=== PATIENT | male | born 1955 | race Caucasian/White ===

== ENCOUNTER 2020-08-03 15:11 | Emergency (ER) | payer OTHER, SELFPAY ==
[2020-08-03] VITALS (40 sets, daily range): BP systolic 130–189; BP diastolic 59–86; PULSE 75–97; RESP 14–28; TEMP 37.7; O2SAT 96–100
--- NOTE | ~2020-08-03 | XR_ITS ---
EXAMINATION: XR foot RT min 3V EXAM DATE: 08/03/2020 16:19 INDICATION: Right foot pain, pressure standing. Great toe is purple. Diabetic. TECHNIQUE: Right foot dorsoplantar, lateral and oblique projections obtained and reviewed. There is no prior study for comparison. FINDINGS: There is ulceration identified overlying the right 1st distal phalanx. There are scattered foci of subcutaneous gas identified within the deeper fascial planes between the 1st and 2nd digits a s proximal as the metatarsal heads. Appearance is suspicious for fasciitis. Scattered foci of gas overlying the proximal aspect of the right 1st distal phalanx, causing some of the lucency to this region, but there is also suspicion of early osteomyelitis. IMPRESSION: 1. Ulceration, and scattered foci of gas, appearance suspicious for fasciitis. 2. Probable right 1st distal phalangeal base osteomyelitis. Reviewed, dictated and finalized at location A.
[2020-08-03 16:17] LABS: Basophils Absolute Auto 0.1 K/mm3 (0.0-0.1); Basophils Percent Auto 0.3 % (0.2-1.2); Eosinophils Percent Auto 0.1 % (0-4.4); Hematocrit 35.4 % (42.0-52.0); Hemoglobin 11.5 g/dL (14.0-18.0); Immature Granulocyte Absolute 0.23 K/mm3 (0.00-0.031); Immature Granulocyte Percent A 1.2 % (0-0.5); Lymphocytes Absolute Auto 1.04 K/mm3 (0.9-3.2); Lymphocytes Percent Auto 5.6 % (18.3-44.2); Mean Corpuscular HGB Conc 32.5 g/dl (32-36); Mean Corpuscular Hemoglobin 27.3 pg (26-34); Mean Corpuscular Volume 83.9 fl (80-100); Mean Platelet Volume 10.5 fl (7.4-10.4); Monocytes Absolute Auto 1.4 K/mm3 (0.1-0.6); Monocytes Percent Auto 7.6 % (2.6-8.5); Neutrophils Absolute Auto 15.9 K/mm3 (1.3-6.7); Neutrophils Percent Auto 85.2 % (45.5-73.1); Platelet Count Result 252 k/mm3 (150-375); Red Blood Count 4.22 M/mm3 (4.6-6.20); Red Cell Distribution Width 12.7 % (11.5-14.5); White Blood Count 18.7 K/mm3 (4.5-10.0)
[2020-08-03 16:26] LABS: Anion Gap 15 mmol/L (8-16); Blood Urea Nitrogen 18 mg/dL (9-20); Calcium 9.2 mg/dL (8.4-10.2); Carbon Dioxide 19 mmol/L (22-30); Chloride 95 mmol/L (98-107); Estimated CRCL calculation 71 ml/min; Estimated Glomerular Filt Rate > 60; Glucose 390 mg/dL (75-110); Potassium 4.7 mmol/L (3.4-5.0); Sodium 129 mmol/L (137-145)
[2020-08-03 16:27] LABS: INR 1.1; Prothrombin Time 15.1 Seconds (11.1-14.7)
[2020-08-03 16:28] LABS: Partial Thromboplastin Time 38.2 SECONDS (22.3-36.8)
[2020-08-03 16:46] LABS: Erythrocyte Sedimentation Rate 61 mm/hr (0-20)
[2020-08-03 17:02] LABS: CRP 38.6 mg/dL (<1.0)
[2020-08-03 17:22] LABS: Hemoglobin A1C > 14.0 % (<5.7)
--- NOTE | 2020-08-03 17:49 | ED.LOWEXIN ---
HPI - Extremity Injury (Lower) General Chief Complaint: Extremity Injury, Lower Stated Complaint: right foot infection Time Seen by Provider: 08/03/20 16:39 Source: patient Limitations: no limitations History of Present Illness HPI Narrative: Patient 65 years old white male presents with pain, swelling, redness and discoloration of the right foot started on the last few days. History of diabetes, does not take his medication over 1 year because of insurance issues. Patient denies any fever, chills, nausea, vomiting, chest pain, back pain or abdominal pain. Patient does not smoke or drink or uses drugs. Patient is DNR. Related Data Home Medications Medication Instructions Recorded Confirmed No Home Medications 08/03/20 08/03/20 Allergies Allergy/AdvReac Type Severity Reaction Status Date / Time No Known Allergies Allergy Verified 08/03/20 15:48 Review of Systems Review of Systems: Narrative: CONSTITUTIONAL: Denies fever, chills, or sweats. EYES: Denies visual changes, redness, or discharge. ENT: Denies rhinorrhea, congestion, sore throat, or otalgia. CARDIOVASCULAR: Denies chest pain, palpitations, or edema. RESPIRATORY: Denies cough or dyspnea. GASTROINTESTINAL: Denies abdominal pain, nausea, vomiting, or diarrhea. GENITOURINARY: Denies dysuria or hematuria. SKIN: Denies rash or itching. MUSCULOSKELETAL: Denies back pain, joint pain, or myalgia. NEUROLOGIC: Denies headache, numbness, or weakness. PSYCHIATRIC: Denies anxiety or depression. Exam Narrative: Exam Narrative: General appearance: Well-developed, well-nourished Skin: Normal color Head: Normocephalic, nontraumatic Eyes: Clear conjunctiva ENT: Oropharynx normal, ears normal, nose normal Neck: Supple, nontender Chest and respiratory: Airway patent, no respiratory distress, no accessory muscle use Heart: Regular rate/rhythm Abdomen: Soft, nontender, no organomegaly, quiet bowel sounds Vascular: Normal peripheral pulses, normal capillary refill. Musculoskeletal: Normal range of motion, nontender back, right foot showed diffuse dorsal erythema, right big toe showed sloughed skin, black discoloration, yellow discoloration, no discharge, diffusely tender Neurologic: Alert and oriented ?3, ENTERPRISE ANALYST is normal as tested, no gross motor deficit Course Course Emergency Course: Stable Consultations Consultation #1: louie Transfer patient to [facility] Date: 08/03/20 Time: 18:29 Consultation #2: DR CARBAJAL The accepting physician at [facility]. Date: 08/03/20 Time: 18:55 Vital Signs Vital signs: Vital Signs Temperature 37.7 C H 08/03/20 15:29 Pulse Rate 89 08/03/20 15:29 Respiratory Rate 20 08/03/20 15:29 Blood Pressure 189/86 H 08/03/20 15:29 Pulse Oximetry 99 08/03/20 15:29 Temperature 37.7 C H 08/03/20 15:29 Pulse Rate 88 08/03/20 19:47 Respiratory Rate 16 08/03/20 19:47 Blood Pressure 141/70 H 08/03/20 19:47 Pulse Oximetry 98 08/03/20 19:47 MDM - Extremity Injury (Lower) MDM Narrative Medical decision making narrative: Patient presents with diabetic foot Labs, x-ray right foot, ordered. Further plan to follow. Please look at the differential diagnosis below Differential Diagnosis Differential diagnosis: Likely other (Diabetic foot, gangrenous toe, diabetic hyperglycemia, electrolyte imbalance) Lab Data Result diagrams: 08/03/20 15:42 08/03/20 15:42 Labs: Lab Results 08/03/20 08/03/20 08/03/20 Range/Units 15:42 15:42 15:42 WBC 18.7 H (4.5-10.0) K/mm3 RBC 4.22 L (4.6-6.20) M/mm3 Hgb 11.5 L (14.0-18.0) g/dL Hct 35.4 L (42.0-52.0) % MCV 83.9 (80-100) fl MCH 27.3
[2020-08-03] MEDS: ERTAPENEM 1 GM/NS 50 ML 1 GM/50 ML BAG IVPB (18:15)
[2020-08-03] MEDS: SODIUM CHLORIDE 0.9% IV 1,000 ML 999 ML IV CONT ×2 (18:28→19:48)
--- NOTE | 2020-08-03 19:51 | PC.NURSE ---
right pedal pulse found via doppler.
[2020-08-03 19:52] LABS: Glucose Point of Care 441 (65-105)
--- NOTE | 2020-08-03 21:23 | PC.NURSE ---
Addendum entered by Tia Hills 08/03/20 21:45: CANCELLED [facility] @[id number]...changed to S, new ETA would be [id number] Called [facility] - DECLINED CALLED [facility] - ETA [id number] Original Note: Called [facility] to transport to [place] on [address] Rm [address]...ETA [id number]
== END 2020-08-03 22:45 | disposition short-term general hospital (02) ==
PROVIDERS: Physician Assistant; Emergency Provider Emergency Medicine
DX: E11.621 Type 2 diabetes mellitus with foot ulcer (principal); M72.9 Fibroblastic disorder, unspecified; M86.9 Osteomyelitis, unspecified; Z91.14 Patient's other noncompliance with medication regimen
CPT/HCPCS: 36415; 73630; 80048; 82948; 83036; 85025; 85610; 85652; 85730; 86140; 96361; 96365; 96375; 99285; J1335; J3370; J7030

== ENCOUNTER 2020-09-22 22:11 | IRF | payer OTHER, SELFPAY ==
[2020-09-22 21:49] VITALS: BP 143/80; PULSE 79; RESP 16; TEMP 36.7; O2SAT 98; BMI 24.5
[2020-09-22 22:30] LABS: Glucose Point of Care 138 mg/dl (65-105)
[2020-09-22] MEDS: HYDROcodone/acetaminophen (*CRX) 5-325 MG TABLET 1 TAB PO (23:16)
--- NOTE | 2020-09-23 01:14 | ADMGEN ---
This patient, Efrain Fiore, was admitted to [facility] Room 221-02. Patient/family oriented to hospital policies and general routines including ID bracelet, bed and alarms, visiting hours, pain management, procedures, bathroom and other care routines, personal items, smoking policy, room service/diet, and visiting hours. Information on how to activate the Rapid Response Team has been discussed. Patient/Family are encouraged to report perceived risks to care and to ask questions if they do not understand what they are told or what they should do. TDialRNC
[2020-09-23 06:00] VITALS: BP 120/86; PULSE 74; RESP 16; TEMP 36.4; O2SAT 99
[2020-09-23] MEDS: HYDROcodone/acetaminophen (*CRX) 5-325 MG TABLET 1 TAB PO ×4 (06:19→21:20)
[2020-09-23 06:39] LABS: Glucose Point of Care 154 mg/dl (65-105)
[2020-09-23] MEDS: INSULIN ASPART (*BKC) 100 UNITS/ML SUB-Q ×2 (07:15→12:03)
[2020-09-23] MEDS: amLODIPine BESYLATE 5 MG TABLET PO (08:36)
[2020-09-23] MEDS: PANTOPRAZOLE 40 MG TABLET PO (08:37)
[2020-09-23] MEDS: GABAPENTIN 300 MG CAPSULE PO ×3 (08:37→16:38)
[2020-09-23] MEDS: PENTOXIFYLLINE 400 MG TABCR PO ×3 (08:37→16:38)
--- NOTE | 2020-09-23 09:37 | WPDREHABHP ---
H&P: HPI History of Present Illness Date/Time: 09/23/20 09:37 Chief Complaint: Right transmetatarsal amputation. Narrative: HISTORY OF PRESENT ILLNESS: The patient's primary rehab impairment category is 0 9 orthopedic other The etiologic diagnosis is right foot osteomyelitis status post right transmetatarsal amputation I saw this patient [id number] on 09/23/2020 The patient is a 65-year-old male with past medical history of diabetes mellitus and right great toe amputation presented to [facility] on 09/11/2020 with purulent discharge from right great toe amputation site. Patient had recently been hospitalized. Patient was discovered on 08/04/2020 to have a blister on the right toe that turned to gas gangrene. He underwent a right great toe amputation and was discharged home from [facility]. Follow up wound care was not initiated. He presented to a wound care clinic on his own and had been doing intermittent wound dressings for him. His last dressing change was on 08/09 when the wound VAC was removed. The patient returned on 09/11 with purulent discharge coming from the amputation site. X-ray of the right foot showed possible osteomyelitis. MRI revealed osteomyelitis. Patient was placed on IV antibiotics. He received a total of 8 days of IV Levaquin and 11 days of vancomycin being discontinued on 09/21/2020. On 09/17/2020 Dr. Jacobo Chao performed a right transmetatarsal amputation. He is nonweightbearing to the right lower extremity. He receives daily dressing changes with Adaptic, gauze, Kerlix and Otto wrap. Postoperatively the patient experienced postop incisional pain and phantom pain, hyponatremia, hyperglycemia, acute blood loss anemia and reactive hypertension. Patient was started on Norvasc for hypertension. Patient's pain is treated with oral analgesics. Hyponatremia was mild and is being repleted. Patient is on sliding scale insulin for hyperglycemia. COVID the patient has not traveled outside the [place] within the Lat past 21 days and has not been exposed to anyone who has traveled to an area with COVID or exposed to any personal contact with COVID. Patient has been afebrile and has no lower respiratory illness. COVID negative on 09/22/2020. Therapy was initiated at the acute care facility and the patient transferred to us from [facility] on 09/22/2020 FALLS OR SURGERIES: He sustained 1 fall 6 months ago when he tripped over his wound VAC. He had no injuries from the incident. Patient has had major surgery consisting of right toe amputation and a transmetatarsal amputation all performed at [facility] PRIOR LEVEL OF FUNCTION: Eating was [INDEPENDENT] Oral Care was [INDEPENDENT] Toileting Hygiene was [INDEPENDENT] Shower/Bathing was [INDEPENDENT] Upper Body Dressing was [INDEPENDENT] Lower Body Dressing was [INDEPENDENT] Donning/Burney Footwear was [INDEPENDENT] Rolling Left and Right was [INDEPENDENT] Sit to Lying was [INDEPENDENT] Lying to Sitting was [INDEPENDENT] Sit to Stand was [INDEPENDENT] Bed to Chair Transfers was [INDEPENDENT] Toilet Transfers was [INDEPENDENT] Walking was [INDEPENDENT] [>500 feet] with [NO DEVICE] Wheelchair Mobility was [NOT APPLICABLE PRIOR TO ADMISSION] Stairs were [INDEPENDENT] CURRENT LEVEL OF FUNCTION: Eating was independent Oral Care was supervision or touching assistance Toileting Hygiene was partial to mod assistance Shower/Bathing was partial to mod assistance Upper Body Dressing was partial to mod assist Lower Body Dressing was partial to mod assist Donning/Burney Footwear was partial to mod assist Rolling Left and Right was supervision or touching assist Sit to Lying was supervision or test Lying to Sitting was supervision or touching assist Sit to Stand was partial to mod assist Bed to Chair Transfers were partial to mod assist Toilet Transfers were partial to mod assist Walki
[2020-09-23 10:46] LABS: Basophils Percent Auto 0.6 % (0.2-1.2); Eosinophils Absolute Auto 0.3 K/mm3 (0-0.3); Eosinophils Percent Auto 4.9 % (0-4.4); Hematocrit 37.7 % (42.0-52.0); Hemoglobin 11.9 g/dL (14.0-18.0); Immature Granulocyte Absolute 0.01 K/mm3 (0.00-0.031); Immature Granulocyte Percent A 0.2 % (0-0.5); Lymphocytes Absolute Auto 1.62 K/mm3 (0.9-3.2); Lymphocytes Percent Auto 31.5 % (18.3-44.2); Mean Corpuscular HGB Conc 31.6 g/dl (32-36); Mean Corpuscular Hemoglobin 26.6 pg (26-34); Mean Corpuscular Volume 84.3 fl (80-100); Mean Platelet Volume 10.2 fl (7.4-10.4); Monocytes Absolute Auto 0.6 K/mm3 (0.1-0.6); Monocytes Percent Auto 10.9 % (2.6-8.5); Neutrophils Absolute Auto 2.7 K/mm3 (1.3-6.7); Neutrophils Percent Auto 51.9 % (45.5-73.1); Platelet Count Result 236 k/mm3 (150-375); Red Blood Count 4.47 M/mm3 (4.6-6.20); Red Cell Distribution Width 14.8 % (11.5-14.5); White Blood Count 5.1 K/mm3 (4.5-10.0)
[2020-09-23 10:55] LABS: Alanine Aminotransferase 19 U/L (4-50); Albumin Level 4.6 g/dL (3.5-5.1); Alkaline Phosphatase 108 U/L (38-126); Anion Gap 11 mmol/L (8-16); Aspartate Amino Transferase 25 U/L (17-59); Bilirubin,Total 0.9 mg/dL (0.2-1.3); Blood Urea Nitrogen 23 mg/dL (9-20); Calcium 10.1 mg/dL (8.4-10.2); Carbon Dioxide 26 mmol/L (22-30); Chloride 104 mmol/L (98-107); Estimated CRCL calculation 80 ml/min; Estimated Glomerular Filt Rate > 60; Glucose 226 mg/dL (75-110); Potassium 4.3 mmol/L (3.4-5.0); Sodium 141 mmol/L (137-145)
[2020-09-23 11:38] LABS: Glucose Point of Care 190 mg/dl (65-105)
[2020-09-23 12:08] VITALS: BMI 24.5
[2020-09-23 12:30] VITALS: BMI 24.5
--- NOTE | 2020-09-23 12:50 | PCNSR ---
On 09/23/20, the student, Soraya Puckett, provided care and completed [facility] documentation on this patient. I have reviewed the student's documentation and agree with the findings.
[2020-09-23 14:00] VITALS: BP 113/65; PULSE 79; RESP 20; TEMP 36.7; O2SAT 100
[2020-09-23] MEDS: metFORMIN HCL 500 MG TABLET PO (16:38)
--- NOTE | 2020-09-23 18:00 | WPDCN ---
Assessment and Plan Assessment and plan (1) Status post transmetatarsal amputation of right foot: Code(s): Z89.431 - Acquired absence of right foot Status: Acute Assessment and Plan: Postoperative day 6 status post right foot transmetatarsal amputation. Wound care and DVT prophylaxis deferred to primary service. (2) Phantom pain after amputation of lower extremity: Code(s): G54.6 - Phantom limb syndrome with pain Status: Acute Assessment and Plan: Patient on gabapentin t.i.d. 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 Initiate sliding scale insulin, Accu-Cheks, and hypoglycemic protocol. Check hemoglobin A1c. (4) Normocytic anemia: Code(s): D64.9 - Anemia, unspecified Status: Acute Assessment and Plan: Patient apparently had acute blood loss anemia with his previous hospitalization. No acute issues. Hemoglobin and hematocrit will be monitored. (5) Gastroesophageal reflux disease: Code(s): K21.9 - Gastro-esophageal reflux disease without esophagitis Status: Acute Assessment and Plan: No acute issues. Continue PPI. (6) Hypertension: Code(s): I10 - Essential (primary) hypertension Status: Acute Assessment and Plan: Blood pressures were reviewed and they are well controlled. Continue antihypertensives and monitor daily. Additional Plan Thank you for allowing us to participate in this patient's care. Please do not hesitate to contact us with any questions. Supervising physician for this medical consultation is Dr. Jeimy Man. HPI Data of Consult Date/Time: 09/23/20 18:00 Requesting Physician: Carmen Sales DO Primary Care Provider: Oliver Shipley MD Consult Narrative Narrative: This is a 65-year-old male with history of poorly controlled insulin-dependent type 2 diabetes mellitus, hypertension, and gastroesophageal reflux disease currently undergoing rehab at [facility] status post right transmetatarsal amputation for right foot osteomyelitis whom the hospitalist service has been consulted for management of his medical conditions. He presented to the emergency department on 08/03/2020 for evaluation of a gangrenous right foot infection, had evidence of fasciitis and osteomyelitis on imaging, and he was transferred to [facility] in [place] where he had a right 1st toe amputation. He was discharged with a wound VAC however there was no scheduled follow-up and he infection had progressed quite significantly when the dressing was removed several weeks thereafter. He ended up at [facility] where he had a right transmetatarsal amputation on 09/17/[address] Jacobo Chao and has been transferred to [facility] for rehab. Per patient report, he has been doing well with physical therapy and the anticipate him staying for about 5 days. Aside from phantom limb pain he has no specific complaints at this time. Specifically he denies fever, chills, sweats, chest pain, shortness of breath, nausea, vomiting, diarrhea, and dysuria. Review of Systems Review of Systems: Narrative: Twelve systems were reviewed with pertinent positives and negatives as per HPI. Except as documented, all other systems were reviewed and are negative. [facility] Past Medical History Medical History (Updated 09/23/20 @ 15:18 by Shayna Pacheco PA-C) Gastroesophageal reflux disease History of osteomyelitis Treated with IV antibiotics and ultimate right transmetatarsal amputation. Hypertension Insulin dependent type 2 diabetes mellitus (2014) Hemoglobin A1c was greater than 14% on 08/03/2020. Normocytic anemia Surgical History Surgical Histo
[2020-09-23 19:54] LABS: Glucose Point of Care 193 mg/dl (65-105)
[2020-09-23 19:54] LABS: Glucose Point of Care 224 mg/dl (65-105)
[2020-09-23] MEDS: INSULIN GLARGINE (*BKC) 100 UNITS/ML 18 UNITS SUB-Q (20:56)
[2020-09-23 21:47] VITALS: BP 114/72; PULSE 68; RESP 16; TEMP 36.4; O2SAT 96
[2020-09-24 05:12] LABS: Basophils Percent Auto 0.7 % (0.2-1.2); Eosinophils Absolute Auto 0.3 K/mm3 (0-0.3); Eosinophils Percent Auto 5.1 % (0-4.4); Hematocrit 36.3 % (42.0-52.0); Hemoglobin 11.1 g/dL (14.0-18.0); Immature Granulocyte Absolute 0.02 K/mm3 (0.00-0.031); Immature Granulocyte Percent A 0.4 % (0-0.5); Lymphocytes Absolute Auto 1.47 K/mm3 (0.9-3.2); Mean Corpuscular HGB Conc 30.6 g/dl (32-36); Mean Corpuscular Hemoglobin 26.3 pg (26-34); Monocytes Absolute Auto 0.6 K/mm3 (0.1-0.6); Monocytes Percent Auto 10.3 % (2.6-8.5); Neutrophils Absolute Auto 3.1 K/mm3 (1.3-6.7); Neutrophils Percent Auto 56.5 % (45.5-73.1); Platelet Count Result 193 k/mm3 (150-375); Red Blood Count 4.22 M/mm3 (4.6-6.20); Red Cell Distribution Width 14.7 % (11.5-14.5); White Blood Count 5.5 K/mm3 (4.5-10.0)
[2020-09-24 05:23] LABS: Alanine Aminotransferase 15 U/L (4-50); Albumin Level 3.9 g/dL (3.5-5.1); Alkaline Phosphatase 87 U/L (38-126); Anion Gap 8 mmol/L (8-16); Aspartate Amino Transferase 28 U/L (17-59); Bilirubin,Total 0.7 mg/dL (0.2-1.3); Blood Urea Nitrogen 21 mg/dL (9-20); Calcium 9.4 mg/dL (8.4-10.2); Carbon Dioxide 26 mmol/L (22-30); Chloride 104 mmol/L (98-107); Estimated CRCL calculation 90 ml/min; Estimated Glomerular Filt Rate > 60; Glucose 156 mg/dL (75-110); Potassium 4.6 mmol/L (3.4-5.0); Sodium 138 mmol/L (137-145)
[2020-09-24 06:00] VITALS: BP 124/75; PULSE 73; RESP 16; TEMP 36.4; O2SAT 100
[2020-09-24 06:46] LABS: Glucose Point of Care 151 mg/dl (65-105)
[2020-09-24] MEDS: PANTOPRAZOLE 40 MG TABLET PO (07:49)
[2020-09-24] MEDS: PENTOXIFYLLINE 400 MG TABCR PO ×3 (07:49→17:24)
[2020-09-24] MEDS: amLODIPine BESYLATE 5 MG TABLET PO (07:49)
[2020-09-24] MEDS: GABAPENTIN 300 MG CAPSULE PO ×3 (07:49→17:24)
[2020-09-24] MEDS: HYDROcodone/acetaminophen (*CRX) 5-325 MG TABLET 1 TAB PO ×2 (07:49→20:53)
[2020-09-24] MEDS: metFORMIN HCL 500 MG TABLET PO ×2 (07:49→17:24)
--- NOTE | 2020-09-24 09:24 | WPDNEURORHBP ---
Subjective Date/time seen: 09/24/20 09:24 Interval history: Right foot osteomyelitis, status post right transmetatarsal amputation The patient is a 65-year-old male with past medical history of diabetes mellitus and right great toe amputation presented to [facility] on 09/11/2020 with purulent discharge from right great toe amputation site. Patient had recently been hospitalized. Patient was discovered on 08/04/2020 to have a blister on the right toe that turned to gas gangrene. He underwent a right great toe amputation by Dr Dhruv Vences and was discharged home from [facility] in [facility] Follow up wound care was not initiated per patient. He presented to a wound care clinic on his own and had been doing intermittent wound dressings for him. His last dressing change was on 08/09 when the wound VAC was removed. The patient returned on 09/11 with purulent discharge coming from the amputation site at [facility]. X-ray of the right foot showed possible osteomyelitis. MRI revealed osteomyelitis. Patient was placed on IV antibiotics. He received a total of 8 days of IV Levaquin and 11 days of vancomycin being discontinued on 09/21/2020. On 09/17/2020 Dr. Jacobo Chao performed a right transmetatarsal amputation. He is nonweightbearing to the right lower extremity. He receives daily dressing changes with Adaptic, gauze, Kerlix and Otto wrap. Postoperatively the patient experienced postop incisional pain and phantom pain, hyponatremia, hyperglycemia, acute blood loss anemia and reactive hypertension. Patient was started on Norvasc for hypertension. Patient's pain is treated with oral analgesics. Hyponatremia was mild and is being repleted. Patient is on sliding scale insulin for hyperglycemia. Review of Systems Constitutional: Constitutional: Reports fatigue ENT: Reports Normal hearing present and Reports neck pain Cardiovascular: Cardiovascular: Reports no additional cardiovascular complaints Respiratory: Respiratory: Reports no additional respiratory complaints Genitourinary: Genitourinary: Reports no additional male genitourinary complaints Musculoskeletal: Musculoskeletal: Reports neck pain and Reports numbness Neurologic: Reports Normal hearing present, Reports burning sensations, Reports numbness and Reports Sensory deficit (Neuro) Psychiatric: Psychiatric: Reports no additional psychiatric complaints Endocrine: Endocrine: Reports fatigue Hematologic/Lymphatic: Hematologic/Lymphatic: Reports as per HPI Functional Status Ambulation Ability Ability to Ambulate 10 Feet: Contact Guard Ability to Ambulate 50 Feet With 2 Turns: Contact Guard Ambulation Assistive Devices: Walker, Wheeled Exam Const: General: no acute distress Eyes: General: appearance normal, both eyes and all related structures EOM: EOMs intact bilaterally Neck: Other: Mild tenderness is noted to the right aspect of the neck Resp: Auscultation: clear to auscultation bilaterally Cardio: Rate: regular rate Rhythm: regular rhythm GI: Auscultation: normal bowel sounds Neuro: Cranial nerves: Yes Normal hearing present Cognition (Neuro): normal cognition Sensory Exam: Sensory deficit (Neuro) Extrem: Right upper extremity: normal to inspection ( decreased sensation) Left upper extremity: normal to inspection ( diabetic neuropathy decreased sensation) Right lower extremity: foot ( right transmetatarsal amputation. Incision shows good approximation. ) Details: abnormal to inspection ( Sutures are present.) Left lower extremity: ankle ( diabetic neuropathy noted with decreased sensation) and foot ( Left metatarsal area has scab with history of opened area present) Details: motor-sensory exam ( diabetic neuropathy) Psych: Mental Status: mental status grossly normal Affect: normal affect Objective Data Vital Signs Vital Signs: Vital Signs - 24 hr 09/23/20 14:00 09/23/20 21:47 09/24/20 06:00 Tem[place]a
--- NOTE | 2020-09-24 10:40 | RPD ---
INDIVIDUALIZED PLAN OF CARE FOR Efrain Fiore Brief Synthesis of Pre-Admission Screen, Post-Admission Evaluation and Therapy Evaluations: The patient presents to rehab with right foot osteomyelitis status post right transmetatarsal amputation. Comorbidities include acute postoperative pain, acute blood loss anemia, diabetes mellitus with hyperglycemia, respiratory insufficiency, reactive hypertension, and hyponatremia. The complexity of the patient's medical management, nursing, and therapy needs require an inpatient rehab hospital stay with a physician-led interdisciplinary team approach. The patient?s needs will be best met in an intensive program vs. at a lower level of care. The patient requires physician services for medical oversight, management of post-op complications (hyponatremia, postoperative pain, acute blood loss anemia, diabetes mellitus with hyperglycemia, reactive hypertension) in setting of present comorbidities, and pain management. The patient requires nursing services for anticoagulation therapy, diabetes training, DVT prophylactics, possible IV administration, infection protection, medication management and education, pressure relief, and wound care. Skilled physical and occupational therapy will address ADL training, precaution and safety education, functional mobility, DME education, strengthening, balance, endurance, energy conservation/work simplification training, and family training. Deficits include:ADLs, Balance, Endurance, Family Training/Education, Mobility, Pain Management, ROM, Safety, Strength, Transfers [employer] Supervisor/Case Management for: Discharge Planning and Patient/Family Counseling Physical Therapy: 5 days per week for 90 minutes. Treatments may include: Therapeutic Exercise, Gait Training, Neuromuscular Re-education, Transfer Training, Community Reintegration, Bed Mobility, Patient/Family Education, Wheelchair Mobility Group Therapy/Concurrent Therapy Rationales: -Improve attention span during functional activities in a distracted environment. -Enhance problem solving and/or adequate judgment skills during functional activities in a distracted environment. -Promote increased safety awareness in a distracted environment to reduce fall risk with functional tasks, transfers, and ambulation to allow a more safe, self-sufficient return to the home environment. -Improve dynamic balance skills to promote safety and independence with functional activities in a distracted environment for maximum gain. Occupational Therapy: 5 days per week for 90 minutes. Treatments may include: Therapeutic Exercise, Therapeutic Activity, Cognitive Training, Self-Care Transfer Training, Community Reintegration, Home Management, Patient/Family Education, Wheelchair Mobility Training, Energy Conservation Training Group Therapy/Concurrent Therapy Rationales: -Allow therapist to observe and teach generalization and carry-over of skills learned in individual therapy. -Enhance problem solving and sequencing skills during therapeutic activities in a distracted environment. -Promote increased safety awareness in a realistic setting to reduce fall risk with functional tasks due to visual and verbal distractions. -Increase functional level with ADLs, ADL transfers and use of adaptive equipment through therapeutic activities with others while promoting safety to allow a more safe, self-sufficient return home. Medical Prognosis: Good Anticipated Length of Stay: 10 days Rehab Goals: Eating Goal: 06-Independent Oral Hygiene Goal: 06-Independent Toileting Hygiene Goal: 06-Independent Shower/Bathe Self Goal: 06-Independent Upper Body Dressing Goal: 06-Independent Lower Body Dressing Goal: 06-Independent Putting On/Taking Off Footwear Goal: 06-Independent Rolling Left and Right Goal: 06-Independent Sit to Lying Goal: 06-Independent Lying to Sitting on Side of Bed Goal: 06-Independent Sit to Stand Goal: 06-Independent Chair/Bij-fo-Pbdej Transfer Goal: 06-In
[2020-09-24 11:35] LABS: Glucose Point of Care 200 mg/dl (65-105)
[2020-09-24 14:00] VITALS: BP 106/66; PULSE 87; RESP 18; TEMP 36.6; O2SAT 100
--- NOTE | 2020-09-24 16:03 | PM.IMPN ---
Progress Note: A&P Assessment and Plan (1) Status post transmetatarsal amputation of right foot: Code(s): Z89.431 - Acquired absence of right foot Status: Acute Assessment and Plan: Postoperative day 7 status post right foot transmetatarsal amputation. Wound care and DVT prophylaxis deferred to primary service. (2) Phantom pain after amputation of lower extremity: Code(s): G54.6 - Phantom limb syndrome with pain Status: Acute Assessment and Plan: Patient on gabapentin t.i.d. 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 Blood sugars reviewed and have been fairly well controlled. Fasting glucose 156 this AM. Continue basal insulin, increaseto 20 units. Continue metformin. Continue sliding scale insulin, Accu-Cheks, and hypoglycemic protocol. (4) Normocytic anemia: Code(s): D64.9 - Anemia, unspecified Status: Acute Assessment and Plan: Patient apparently had acute blood loss anemia with his previous hospitalization. No acute issues. Hemoglobin and hematocrit remaining stable. Will continue to monitor. (5) Gastroesophageal reflux disease: Code(s): K21.9 - Gastro-esophageal reflux disease without esophagitis Status: Acute Assessment and Plan: No acute issues. Continue PPI. (6) Hypertension: Code(s): I10 - Essential (primary) hypertension Status: Acute Assessment and Plan: Blood pressures were reviewed and they are well controlled. Last BP 106/66. Continue antihypertensives and monitor daily. Additional Plan Thank you for allowing us to participate in this patient's care. Please do not hesitate to contact us with any questions. Subjective Date/time seen: 09/24/20 16:04 Interval history: Date of service: 09/24/20 Efrain Fiore is a 65 year old male with a history of GERD, HTN, and insulin dependent type 2 diabetes mellitus who is seen in consultation for management of diabetes. He is doing well today. His foot pain is currently rated 2/10. He denies numbness or tingling in his lower extremities. He has been participating in therapy and doing well. He has been eating well today. Denies nausea or vomiting. He had a bowel movement this morning. Denies urinary symptoms. No fever, chills, nausea, vomiting, dizziness, lightheadedness. Review of Systems Review of Systems: All systems reviewed & are unremarkable except as noted in HPI and below Exam Narrative: Exam Narrative: Mr. Fiore is a well-nourished, well-appearing 65-year-old male who is lying supine in bed. He appears comfortable and is in NARD. Neuro: awake, alert and oriented x4, speech clear, no focal neuro deficits noted HEENMT: normocephalic, atraumatic, EOMI, sclerae anicteric, moist oral mucosa, tongue midline, nares patent Neck: supple, no lymphadenopathy Respiratory: clear to auscultation bilaterally, nonlabored breathing Cardio: regular rate, regular rhythm with S1-S2 Abdomen: nondistended, normoactive bowel sounds, soft, nontender to palpation, no rigidity or guarding Extremities: right foot s/p transmetatarsal amputation wrapped in GUILLERMINA wrap without drainage, right calf without edema, erythema, or tenderness to palpation. Left leg with no edema, erythema, or tenderness to palpation. Brisk capillary refill. Skin: no rashes or lesions, warm and dry Psych: appropriate mood and affect, judgment and insight intact Objective Data Vital Signs Vital Signs: Vital Signs - 24 hr 09/23/20 21:47 09/24/20 06:00 09/24/20 14:00 Temperature 97.5 F L 97.6 F 97.8 F Pulse Rate 68 73 87 Respiratory Rate 16 16 18 Blood Pressure 114/72 124/75 106/66 Pulse Oximetry 96 100 100 Intake/Output Intake/Output: Intake & Output 09/21/20 09/22/2009/23
[2020-09-24 17:30] LABS: Glucose Point of Care 177 mg/dl (65-105)
[2020-09-24 19:40] LABS: Glucose Point of Care 220 mg/dl (65-105)
[2020-09-24] MEDS: INSULIN GLARGINE (*BKC) 100 UNITS/ML 20 UNITS SUB-Q (20:13)
[2020-09-24 21:41] VITALS: BP 139/73; PULSE 83; RESP 16; TEMP 36.5; O2SAT 100
[2020-09-25 06:00] VITALS: BP 135/71; PULSE 73; RESP 16; TEMP 36.5; O2SAT 96
[2020-09-25 06:29] LABS: Glucose Point of Care 163 mg/dl (65-105)
[2020-09-25] MEDS: HYDROcodone/acetaminophen (*CRX) 5-325 MG TABLET 1 TAB PO (08:44)
[2020-09-25] MEDS: GABAPENTIN 300 MG CAPSULE PO ×3 (08:45→17:53)
[2020-09-25] MEDS: PENTOXIFYLLINE 400 MG TABCR PO ×3 (08:46→17:53)
[2020-09-25] MEDS: metFORMIN HCL 500 MG TABLET PO ×2 (08:46→17:53)
[2020-09-25] MEDS: amLODIPine BESYLATE 5 MG TABLET PO (08:47)
[2020-09-25] MEDS: PANTOPRAZOLE 40 MG TABLET PO (08:47)
--- NOTE | 2020-09-25 09:10 | WPDNEURORHBP ---
Subjective Date/time seen: 09/25/20 09:11 Interval history: Interval history: Right foot osteomyelitis, status post right transmetatarsal amputation The patient is a 65-year-old male with past medical history of diabetes mellitus and right great toe amputation presented to [facility] on 09/11/2020 with purulent discharge from right great toe amputation site. Patient had recently been hospitalized. Patient was discovered on 08/04/2020 to have a blister on the right toe that turned to gas gangrene. He underwent a right great toe amputation by Dr Dhruv Vences and was discharged home from [facility] in [facility] Follow up wound care was not initiated per patient report. He presented to a wound care clinic on his own and had been doing intermittent wound dressings for him. His last dressing change was on 08/09 when the wound VAC was removed. The patient returned on 09/11 with purulent discharge coming from the amputation site at [facility]. X-ray of the right foot showed possible osteomyelitis. MRI revealed osteomyelitis. Patient was placed on IV antibiotics. He received a total of 8 days of IV Levaquin and 11 days of vancomycin being discontinued on 09/21/2020. On 09/17/2020 Dr. Jacobo Chao performed a right transmetatarsal amputation. He is nonweightbearing to the right lower extremity. He receives daily dressing changes with Adaptic, gauze, Kerlix and Otto wrap. Postoperatively the patient experienced postop incisional pain and phantom pain, hyponatremia, hyperglycemia, acute blood loss anemia and reactive hypertension. Patient was started on Norvasc for hypertension. Patient's pain is treated with oral analgesics. Hyponatremia was mild and is being repleted. Patient is on sliding scale insulin for hyperglycemia. REHAB HOSPITAL COURSE: 09/25/20 Patient complains of phantom pain. Appetite Fair. Patient participating in therapy. Review of Systems Review of Systems: All systems reviewed & are unremarkable except as noted in HPI and below Functional Status Ambulation Ability Ability to Ambulate 10 Feet: Standby Assistance Ability to Ambulate 50 Feet With 2 Turns: Standby Assistance Ambulation Assistive Devices: Walker, Wheeled Exam Const: General: no acute distress Eyes: General: appearance normal, both eyes and all related structures EOM: EOMs intact bilaterally Neck: Other: Mild tenderness is noted to the right aspect of the neck Resp: Auscultation: clear to auscultation bilaterally Cardio: Rate: regular rate Rhythm: regular rhythm GI: Auscultation: normal bowel sounds Neuro: Cranial nerves: Yes Normal hearing present Cognition (Neuro): normal cognition Sensory Exam: Sensory deficit (Neuro) Extrem: Right upper extremity: normal to inspection ( decreased sensation) Left upper extremity: normal to inspection ( diabetic neuropathy decreased sensation) Right lower extremity: foot ( right transmetatarsal amputation. Incision shows good approximation. ) Details: abnormal to inspection ( Sutures are present.) Left lower extremity: ankle ( diabetic neuropathy noted with decreased sensation) and foot ( Left metatarsal area has scab with history of opened area present) Details: motor-sensory exam ( diabetic neuropathy) Psych: Mental Status: mental status grossly normal Affect: normal affect Objective Data Vital Signs Vital Signs: Vital Signs - 24 hr 09/24/20 14:00 09/24/20 21:41 09/25/20 06:00 Temperature 36.6 C 36.5 C 36.5 C Pulse Rate 87 83 73 Respiratory Rate 18 16 16 Blood Pressure 106/66 139/73 135/71 Pulse Oximetry 100 100 96 Intake/Output Intake/Output: Intake & Output 09/22/20 09/23/20 09/24/20 09/25/20 23:59 23:59 23:59 23:59 Intake Total 1080 1440 480 Balance 1080 1440 480 Meds/Results Medications: Active Medications Generic Name Dose Route Start Last Admin Trade Name Freq PRN Reason Stop Dose Admin Hydrocodone Bitart/Acetaminophen 1 tab 0
[2020-09-25] MEDS: INSULIN ASPART (*BKC) 100 UNITS/ML SUB-Q ×2 (13:33→17:56)
[2020-09-25 13:46] VITALS: BP 141/76; PULSE 76; RESP 18; TEMP 36.4; O2SAT 96
--- NOTE | 2020-09-25 15:00 | PCCDE ---
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 FBS has ranged 151-163, and preprandial BG 177-224mg/dl; Lantus was increased to 20 units on 09/24 and 5 units Novolog AC TID resumed 09/25. Met with pt and explained that prandial insulin was resumed. Pt was accepting but also asking what the chances of getting back to orals only. Encouraged pt to monitor and discuss with PCP. Discussed some oral med options. Pt v/u of how to use insulin pens; reviewed when to take each and how to synchronize rapid acting insulin with meals. Pt was able to state >2 sx of hypoglycemia and explain the Rule of 15 for treating low. 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 09/24 a1c was 8.0% and pt already aware; he v/u of goal of 6.5-7.0%. Encouraged pt to f/up with PCP (Quinten) and he reports he already has appt and lab slip set up. Provided Diabetes Management book with DM Specialist contact info and encouraged to call prn.
[2020-09-25 17:08] LABS: Glucose Point of Care 156 mg/dl (65-105)
[2020-09-25 17:08] LABS: Glucose Point of Care 197 mg/dl (65-105)
[2020-09-25] MEDS: ACETAMINOPHEN 500 MG TABLET 1000 MG PO (17:53)
[2020-09-25] MEDS: INSULIN GLARGINE (*BKC) 100 UNITS/ML 20 UNITS SUB-Q (21:17)
[2020-09-25 22:00] VITALS: BP 113/75; PULSE 89; RESP 16; TEMP 36.7; O2SAT 100
[2020-09-26 03:16] LABS: Glucose Point of Care 136 mg/dl (65-105)
[2020-09-26 05:43] VITALS: BP 131/54; PULSE 80; RESP 16; TEMP 36.4; O2SAT 97
[2020-09-26 08:00] VITALS: PULSE 80; RESP 16; O2SAT 97
[2020-09-26] MEDS: INSULIN ASPART (*BKC) 100 UNITS/ML SUB-Q ×4 (08:32→17:05)
[2020-09-26] MEDS: GABAPENTIN 300 MG CAPSULE PO (08:32)
[2020-09-26] MEDS: PANTOPRAZOLE 40 MG TABLET PO (08:33)
[2020-09-26] MEDS: metFORMIN HCL 500 MG TABLET PO ×2 (08:33→16:57)
[2020-09-26] MEDS: PENTOXIFYLLINE 400 MG TABCR PO ×3 (08:33→16:57)
[2020-09-26] MEDS: amLODIPine BESYLATE 5 MG TABLET PO (08:33)
[2020-09-26] MEDS: HYDROcodone/acetaminophen (*CRX) 5-325 MG TABLET 1 TAB PO ×2 (08:40→13:13)
--- NOTE | 2020-09-26 08:53 | WPDNEURORHBP ---
Subjective Date/time seen: 09/26/20 08:53 Interval history: Interval history: Right foot osteomyelitis, status post right transmetatarsal amputation The patient is a 65-year-old male with past medical history of diabetes mellitus and right great toe amputation presented to [facility] on 09/11/2020 with purulent discharge from right great toe amputation site. Patient had recently been hospitalized. Patient was discovered on 08/04/2020 to have a blister on the right toe that turned to gas gangrene. He underwent a right great toe amputation by Dr Dhruv Vences and was discharged home from [facility] in [facility] Follow up wound care was not initiated per patient report. He presented to a wound care clinic on his own and had been doing intermittent wound dressings for him. His last dressing change was on 08/09 when the wound VAC was removed. The patient returned on 09/11 with purulent discharge coming from the amputation site at [facility]. X-ray of the right foot showed possible osteomyelitis. MRI revealed osteomyelitis. Patient was placed on IV antibiotics. He received a total of 8 days of IV Levaquin and 11 days of vancomycin being discontinued on 09/21/2020. On 09/17/2020 Dr. Jacobo Chao performed a right transmetatarsal amputation. He is nonweightbearing to the right lower extremity. He receives daily dressing changes with Adaptic, gauze, Kerlix and Otto wrap. Postoperatively the patient experienced postop incisional pain and phantom pain, hyponatremia, hyperglycemia, acute blood loss anemia and reactive hypertension. Patient was started on Norvasc for hypertension. Patient's pain is treated with oral analgesics. Hyponatremia was mild and is being repleted. Patient is on sliding scale insulin for hyperglycemia. REHAB HOSPITAL COURSE: 09/25/20 Patient complains of phantom pain. Appetite Fair. Patient participating in therapy. 09/26/20 Patient with diarrhea today. Patient believes it is something he ate. Patient complained that stump was not wrapped until later yesterday. Patient wishes to have stump wound changed daily. Patient is willing to learn how to perform dressing changes for home. Patient appears upset with 1st surgeon who remove the right big toe and now undergoing transmetatarsal surgery. Patient appears pleased with the 2nd surgeon.Patient states that the first doctor did not remove all the infection. I emphasized that diabetes control also plays a factor in healing. Patient is involved in his care and wants no further amputations to occur her, if possible. therapy is going well. Anticipate discharge on Monday Review of Systems Review of Systems: All systems reviewed & are unremarkable except as noted in HPI and below Constitutional: Constitutional: Reports fatigue ENT: Reports Normal hearing present and Reports neck pain Cardiovascular: Cardiovascular: Reports no additional cardiovascular complaints Respiratory: Respiratory: Reports no additional respiratory complaints Genitourinary: Genitourinary: Reports no additional male genitourinary complaints Musculoskeletal: Musculoskeletal: Reports neck pain and Reports numbness Neurologic: Reports Normal hearing present, Reports burning sensations, Reports numbness and Reports Sensory deficit (Neuro) Psychiatric: Psychiatric: Reports no additional psychiatric complaints Endocrine: Endocrine: Reports fatigue Hematologic/Lymphatic: Hematologic/Lymphatic: Reports as per HPI Functional Status Ambulation Ability Ability to Ambulate 10 Feet: Independent Ability to Ambulate 50 Feet With 2 Turns: Standby Assistance Ambulation Assistive Devices: Walker, Wheeled Exam Const: General: no acute distress Eyes: General: appearance normal, both eyes and all related structures EOM: EOMs intact bilaterally Neck: Other: Mild tenderness is noted to the right aspect of the neck Resp: Auscultation: clear to auscultation bilaterally Cardio
[2020-09-26 11:49] LABS: Glucose Point of Care 181 mg/dl (65-105)
[2020-09-26 11:49] LABS: Glucose Point of Care 227 mg/dl (65-105)
--- NOTE | 2020-09-26 13:04 | PM.IMPN ---
Progress Note: A&P Assessment and Plan (1) Status post transmetatarsal amputation of right foot: Code(s): Z89.431 - Acquired absence of right foot Status: Acute Assessment and Plan: Postoperative day 9 status post right foot transmetatarsal amputation on 09/17/20. Wound care and DVT prophylaxis deferred to primary service. (2) Phantom pain after amputation of lower extremity: Code(s): G54.6 - Phantom limb syndrome with pain Status: Acute Assessment and Plan: Patient on gabapentin t.i.d. (3) Insulin dependent type 2 diabetes mellitus: Onset Date: 2014 Code(s): E11.9 - Type 2 diabetes mellitus without complications; Z79.4 - group home (current) use of insulin Status: Acute Assessment and Plan: A1c is 8.0. Blood sugars reviewed and have been generally well controlled. Fasting glucose 156 this AM. Continue basal insulin at 20 units qHS and novolog 5 units scheduled with meals. Continue metformin. Continue sliding scale insulin, Accu-Cheks, and hypoglycemic protocol. (4) Normocytic anemia: Code(s): D64.9 - Anemia, unspecified Status: Acute Assessment and Plan: Patient apparently had acute blood loss anemia with his previous hospitalization. No acute issues. Hemoglobin and hematocrit remaining stable. Will continue to monitor periodically. (5) Gastroesophageal reflux disease: Code(s): K21.9 - Gastro-esophageal reflux disease without esophagitis Status: Acute Assessment and Plan: No acute issues. Continue PPI. (6) Hypertension: Code(s): I10 - Essential (primary) hypertension Status: Acute Assessment and Plan: Blood pressures were reviewed and they are well controlled. BP this morning was 131/54. Continue antihypertensives and monitor daily. (7) Diarrhea: Code(s): R19.7 - Diarrhea, unspecified Status: Acute Assessment and Plan: Onset last night. Seems to be improving. No signs or symptoms to suggest acute infection. He is tolerating diet. May be related to something he ate vs adverse effect from metformin, which seems less likely as he had been tolerating for sometime prior to onset of symptoms. Will continue to monitor stool patterns. Add probiotic. Subjective Date/time seen: 09/26/20 13:04 Interval history: Date of service: 09/26/20 Efrain Fiore is a 65 year old male with a history of GERD, HTN, and insulin dependent type 2 diabetes mellitus who is status post transmetatarsal amputation who is seen in consultation for management of diabetes. Last night he had 3-4 episodes of watery brown diarrhea and had belching. He denied abdominal pain, nausea, or vomiting. Has had 2 episodes today. Denied melena or hematochezia. He is feeling better now. He was able to tolerate his full breakfast and lunch. He has been drinking plenty of fluids today. Reports foot pain is 1/10. Endorses tingling in the lower extremity which he states is constant since his surgery. Denies fever, chills, sweats, dizziness, lightheadedness.No shortness of breath, cough, or chest pain. Review of Systems Review of Systems: All systems reviewed & are unremarkable except as noted in HPI and below Exam Narrative: Exam Narrative: Mr. Fiore is a well-nourished, well-appearing 65-year-old male who is lying supine in bed. He appears comfortable and is in NARD. Neuro: awake, alert and oriented x4, speech clear, no focal neuro deficits noted HEENMT: normocephalic, atraumatic, EOMI, sclerae anicteric, moist oral mucosa, tongue midline, nares patent Neck: supple, no lymphadenopathy Respiratory: clear to auscultation bilaterally, nonlabored breathing Cardio: regular rate, regular rhythm with S1-S2 Abdomen: nondistended, normoactive bowel sounds, soft, nontender to palpation, no rigidity or guarding Extremities: right foot s/p transmetatarsal amputation wrapped in GUILLERMINA wrap, right calf without edema, erythema,
[2020-09-26] MEDS: GABAPENTIN 400 MG CAPSULE PO ×2 (13:12→16:57)
[2020-09-26 14:00] VITALS: BP 94/63; PULSE 103; RESP 22; TEMP 36.5; O2SAT 100
[2020-09-26 16:49] LABS: Glucose Point of Care 160 mg/dl (65-105)
[2020-09-26] MEDS: ACETAMINOPHEN 500 MG TABLET 1000 MG PO (16:57)
[2020-09-26] MEDS: SACCHAROMYCES BOULARDII 250 MG CAPSULE PO (17:04)
[2020-09-26] MEDS: INSULIN GLARGINE (*BKC) 100 UNITS/ML 20 UNITS SUB-Q (20:58)
[2020-09-26 21:59] VITALS: BP 120/69; PULSE 81; RESP 16; TEMP 36.4; O2SAT 99
[2020-09-27 05:45] LABS: Glucose Point of Care 178 mg/dl (65-105)
[2020-09-27 05:48] VITALS: BP 123/69; PULSE 74; RESP 16; TEMP 36.1; O2SAT 98
[2020-09-27 06:06] LABS: Alanine Aminotransferase 13 U/L (4-50); Albumin Level 4.1 g/dL (3.5-5.1); Alkaline Phosphatase 91 U/L (38-126); Anion Gap 9 mmol/L (8-16); Aspartate Amino Transferase 16 U/L (17-59); Bilirubin,Total 0.7 mg/dL (0.2-1.3); Blood Urea Nitrogen 27 mg/dL (9-20); Calcium 9.9 mg/dL (8.4-10.2); Carbon Dioxide 24 mmol/L (22-30); Chloride 107 mmol/L (98-107); Estimated CRCL calculation 71 ml/min; Estimated Glomerular Filt Rate > 60; Glucose 191 mg/dL (75-110); Potassium 4.4 mmol/L (3.4-5.0); Sodium 140 mmol/L (137-145)
[2020-09-27 07:03] LABS: Glucose Point of Care 223 mg/dl (65-105)
[2020-09-27] MEDS: INSULIN ASPART (*BKC) 100 UNITS/ML SUB-Q ×4 (07:38→17:07)
[2020-09-27] MEDS: metFORMIN HCL 500 MG TABLET PO ×2 (07:39→17:07)
[2020-09-27] MEDS: ACETAMINOPHEN 500 MG TABLET 1000 MG PO ×2 (07:39→17:06)
[2020-09-27] MEDS: amLODIPine BESYLATE 5 MG TABLET PO (07:39)
[2020-09-27] MEDS: PANTOPRAZOLE 40 MG TABLET PO (07:39)
[2020-09-27] MEDS: PENTOXIFYLLINE 400 MG TABCR PO ×3 (07:39→17:06)
[2020-09-27] MEDS: SACCHAROMYCES BOULARDII 250 MG CAPSULE PO ×2 (07:39→17:06)
[2020-09-27] MEDS: GABAPENTIN 400 MG CAPSULE PO ×3 (07:40→17:06)
[2020-09-27 11:44] LABS: Glucose Point of Care 128 mg/dl (65-105)
[2020-09-27 14:00] VITALS: BP 102/58; PULSE 81; RESP 16; TEMP 36.7; O2SAT 99
[2020-09-27 17:05] LABS: Glucose Point of Care 181 mg/dl (65-105)
[2020-09-27] MEDS: INSULIN GLARGINE (*BKC) 100 UNITS/ML 20 UNITS SUB-Q (21:04)
[2020-09-27 21:06] VITALS: BP 140/80; PULSE 79; RESP 18; TEMP 36.2; O2SAT 99
[2020-09-28 06:00] VITALS: BP 114/73; PULSE 74; RESP 16; TEMP 36.4; O2SAT 98
[2020-09-28 06:17] LABS: Glucose Point of Care 145 mg/dl (65-105)
[2020-09-28 06:17] LABS: Glucose Point of Care 195 mg/dl (65-105)
[2020-09-28] MEDS: INSULIN ASPART (*BKC) 100 UNITS/ML SUB-Q ×4 (07:24→17:12)
[2020-09-28] MEDS: PANTOPRAZOLE 40 MG TABLET PO (07:25)
[2020-09-28] MEDS: GABAPENTIN 400 MG CAPSULE PO ×3 (07:25→17:10)
[2020-09-28] MEDS: metFORMIN HCL 500 MG TABLET PO ×2 (07:25→17:10)
[2020-09-28] MEDS: ACETAMINOPHEN 500 MG TABLET 1000 MG PO ×2 (07:25→17:10)
[2020-09-28] MEDS: PENTOXIFYLLINE 400 MG TABCR PO ×3 (07:25→17:10)
[2020-09-28] MEDS: SACCHAROMYCES BOULARDII 250 MG CAPSULE PO ×2 (07:25→17:10)
[2020-09-28] MEDS: amLODIPine BESYLATE 5 MG TABLET PO (07:25)
--- NOTE | 2020-09-28 10:39 | PCNFU ---
Nutrition Follow-Up Complete: Nutrition Diagnosis:Self-monitoring deficit related to undesirable food choices as evidenced by a diagnosis of diabetes and amputation of partial right foot. Nutrition Goal: Have patient meet estimated nutritional needs. Goal has been met, patient is consuming 100% of meals. Nutrition recommendation: Continue with Diabetic Consistent Carbohydrate diet. Last recorded weight is 81.5 kg. Recommend obtaining new weight. Bowel Motility: Last documented on 09/27 Labs Reviewed: BUN (27), Glu (191) Meds Noted: [place], Novolog, Norvasc, Bisacodyl, Lantus, Protonix, Glucophage, Gabapentin, Trental, Florastor Additional Notes: Patient has right lower leg reddened skin and right foot wound from amputation on 09/11. Agree with diet. Patient on Banatrol plus TID. Patient has no questions/ concerns and has a planned discharge date for tomorrow 09/29. Will follow up in 7 days.
--- NOTE | 2020-09-28 10:47 | WPDNEURORHBP ---
Subjective Date/time seen: 09/28/20 10:47 Interval history: Interval history: Interval history: Right foot osteomyelitis, status post right transmetatarsal amputation The patient is a 65-year-old male with past medical history of diabetes mellitus and right great toe amputation presented to [facility] on 09/11/2020 with purulent discharge from right great toe amputation site. Patient had recently been hospitalized. Patient was discovered on 08/04/2020 to have a blister on the right toe that turned to gas gangrene. He underwent a right great toe amputation by Dr Dhruv Vences and was discharged home from [facility] in [facility] Follow up wound care was not initiated per patient report. He presented to a wound care clinic on his own and had been doing intermittent wound dressings for him. His last dressing change was on 08/09 when the wound VAC was removed. The patient returned on 09/11 with purulent discharge coming from the amputation site at [facility]. X-ray of the right foot showed possible osteomyelitis. MRI revealed osteomyelitis. Patient was placed on IV antibiotics. He received a total of 8 days of IV Levaquin and 11 days of vancomycin being discontinued on 09/21/2020. On 09/17/2020 Dr. Jacobo Chao performed a right transmetatarsal amputation. He is nonweightbearing to the right lower extremity. He receives daily dressing changes with Adaptic, gauze, Kerlix and Otto wrap. Postoperatively the patient experienced postop incisional pain and phantom pain, hyponatremia, hyperglycemia, acute blood loss anemia and reactive hypertension. Patient was started on Norvasc for hypertension. Patient's pain is treated with oral analgesics. Hyponatremia was mild and is being repleted. Patient is on sliding scale insulin for hyperglycemia. REHAB HOSPITAL COURSE: 09/25/20 Patient complains of phantom pain. Appetite Fair. Patient participating in therapy. 09/26/20 Patient with diarrhea today. Patient believes it is something he ate. Patient complained that stump was not wrapped until later yesterday. Patient wishes to have stump wound changed daily. Patient is willing to learn how to perform dressing changes for home. Patient appears upset with 1st surgeon who remove the right big toe and now undergoing transmetatarsal surgery. Patient appears pleased with the 2nd surgeon.Patient states that the first doctor did not remove all the infection. I emphasized that diabetes control also plays a factor in healing. Patient is involved in his care and wants no further amputations. 09/28/20 Diarrhea resolved. Reviewed home meds and discharge meds with patient. Patient is reluctant to go on antihypertensive medication at discharge. Blood pressures have been normalizing. Patient was able to perform his own dressing changes to R foot. Pain is better controlled with increase in Neurontin. Gave handoff to Dr Yu's office staff for an update. Review of Systems Review of Systems: All systems reviewed & are unremarkable except as noted in HPI and below Functional Status Ambulation Ability Ability to Ambulate 10 Feet: Independent Ability to Ambulate 50 Feet With 2 Turns: Independent Ambulation Assistive Devices: Walker, Wheeled Exam Const: General: no acute distress Eyes: General: appearance normal, both eyes and all related structures EOM: EOMs intact bilaterally Neck: Other: Mild tenderness is noted to the right aspect of the neck Resp: Auscultation: clear to auscultation bilaterally Cardio: Rate: regular rate Rhythm: regular rhythm GI: Auscultation: normal bowel sounds Neuro: Cranial nerves: Yes Normal hearing present Cognition (Neuro): normal cognition Sensory Exam: Sensory deficit (Neuro) Extrem: Right upper extremity: normal to inspection ( decreased sensation) Left upper extremity: normal to inspection ( diabetic neuropathy decreased sensation) Right lower extremity: foot ( right transmetatars
[2020-09-28 12:07] LABS: Glucose Point of Care 149 mg/dl (65-105)
--- NOTE | 2020-09-28 12:28 | PCNSR ---
On 09/28/20, the student, Soraya Puckett, provided care and completed [facility] documentation on this patient. I have reviewed the student's documentation and agree with the findings.
[2020-09-28 14:00] VITALS: BP 122/70; PULSE 78; RESP 20; TEMP 36.6; O2SAT 99
[2020-09-28 16:39] LABS: Glucose Point of Care 216 mg/dl (65-105)
[2020-09-28] MEDS: INSULIN GLARGINE (*BKC) 100 UNITS/ML 20 UNITS SUB-Q (20:07)
[2020-09-28 21:02] LABS: Glucose Point of Care 118 mg/dl (65-105)
[2020-09-28 21:13] VITALS: BP 137/76; PULSE 77; RESP 16; TEMP 36.4; O2SAT 97
[2020-09-29 06:00] VITALS: BP 120/85; PULSE 77; RESP 16; TEMP 36.3; O2SAT 99
[2020-09-29] MEDS: PENTOXIFYLLINE 400 MG TABCR PO ×2 (07:30→11:57)
[2020-09-29] MEDS: SACCHAROMYCES BOULARDII 250 MG CAPSULE PO (07:30)
[2020-09-29] MEDS: amLODIPine BESYLATE 5 MG TABLET PO (07:30)
[2020-09-29] MEDS: GABAPENTIN 400 MG CAPSULE PO ×2 (07:30→11:57)
[2020-09-29] MEDS: INSULIN ASPART (*BKC) 100 UNITS/ML SUB-Q ×2 (07:31→11:57)
[2020-09-29] MEDS: PANTOPRAZOLE 40 MG TABLET PO (07:31)
[2020-09-29] MEDS: metFORMIN HCL 500 MG TABLET PO (07:31)
[2020-09-29] MEDS: ACETAMINOPHEN 500 MG TABLET 1000 MG PO (07:31)
[2020-09-29 12:22] LABS: Glucose Point of Care 136 mg/dl (65-105)
[2020-09-29 12:22] LABS: Glucose Point of Care 145 mg/dl (65-105)
--- NOTE | 2020-09-29 12:25 | PM.DS ---
DS: Admitting Diagnosis Admitting Diagnosis Admitting Diagnosis: Transmetatarsal amputation DS: Discharge Diagnosis Discharge Diagnosis (1) Diabetes: Qualifiers: Diabetes mellitus complication detail: with peripheral angiopathy without gangrene Diabetes mellitus complication status: with circulatory complication Diabetes mellitus custodial insulin use: with custodial use Diabetes mellitus type: type 2 Qualified Code(s): E11.51 - Type 2 diabetes mellitus with diabetic peripheral angiopathy without gangrene; Z79.4 - FPC (current) use of insulin Code(s): E11.9 - Type 2 diabetes mellitus without complications Status: Acute Assessment and Plan: Lantus 40 units in the evening. Sliding scale insulin with meals. 09/23/20 city administrator recommended Lantus 18 units nightly and Discontinuation of all NovoLog. Patient was started on metformin 500 mg b.i.d.. Sliding-scale insulin continues. 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 Ongoing monitoring of wound will continue (3) Hypertension: Code(s): I10 - Essential (primary) hypertension Status: Acute Assessment and Plan: Patient was started on Norvasc during this hospital stay at [facility]. Patient is reluctant to take Norvasc at discharge. (4) Phantom pain after amputation of lower extremity: Code(s): G54.6 - Phantom limb syndrome with pain Status: Acute Assessment and Plan: Neurontin 300 mg t.i.d. with meals. add Tylenol before a.m. and p.m. therapy. Increase Neurontin to 400mg TID . Pain seems better. (5) Incisional pain: Code(s): L76.82 - Other postprocedural complications of skin and subcutaneous tissue Status: Acute Assessment and Plan: Neurontin 300 mg t.i.d. with meals. Add Tylenol before a.m. and p.m. therapies. 09/26/2020 Neurontin increased to 400 mg t.i.d. (6) Hyponatremia: Code(s): E87.1 - Hypo-osmolality and hyponatremia Status: Acute Assessment and Plan: resolved on admission. Will continue to monitor (7) Acute blood loss anemia: Code(s): D62 - Acute posthemorrhagic anemia Status: Acute Assessment and Plan: admitting blood work revealed mild anemia. Continue to monitor (8) S/P transmetatarsal amputation of foot: Code(s): Z89.439 - Acquired absence of unspecified foot Status: Acute Assessment and Plan: Dr Chao. Continue dressing the wound per surgeon Patient is independent with dressing changes. (9) Diarrhea: Code(s): R19.7 - Diarrhea, unspecified Status: Acute Assessment and Plan: new onset diarrhea on 09/26/2020. Medications have been reviewed. Patient believes it is something he is eating. Medications that may cause diarrhea can be metformin. 09/28/2020 diarrhea has resolved spontaneously DS: Summary Hospital Course Hospital Course: Interval history: Interval history: Interval history: Right foot osteomyelitis, status post right transmetatarsal amputation The patient is a 65-year-old male with past medical history of diabetes mellitus and right great toe amputation presented to [facility] on 09/11/2020 with purulent discharge from right great toe amputation site. Patient had recently been hospitalized. Patient was discovered on 08/04/2020 to have a blister on the right toe that turned to gas gangrene. He underwent a right great toe amputation by Dr Dhruv Vences and was discharged home from [facility] in [facility] Follow up wound care was not initiated per patient report. He presented to a wound care clinic on his own and had been doing intermittent wound dressi
== END 2020-09-29 12:55 | disposition home health service (06) | DRG 561 ==
PROVIDERS: Physician Assistant; Admitting Provider Physical Medicine & Rehabilitation; PCP Emergency Medicine; Visit Provider Physical Medicine & Rehabilitation
DX: Z47.81 Encounter for orthopedic aftercare following surgical amputation (principal); Z89.431 Acquired absence of right foot; D64.9 Anemia, unspecified; E11.319 Type 2 diabetes mellitus with unspecified diabetic retinopathy without macular edema; E11.51 Type 2 diabetes mellitus with diabetic peripheral angiopathy without gangrene; E11.42 Type 2 diabetes mellitus with diabetic polyneuropathy; E11.65 Type 2 diabetes mellitus with hyperglycemia; G54.6 Phantom limb syndrome with pain; I10 Essential (primary) hypertension; K21.9 Gastro-esophageal reflux disease without esophagitis; Z79.4 Long term (current) use of insulin; Z87.891 Personal history of nicotine dependence
CPT/HCPCS: 36415; 80053; 82948; 83036; 85025; 97110; 97116; 97161; 97165; 97530; 97535; 97542; A9270; J1815

== ENCOUNTER 2020-12-07 09:13 | Outpatient (CLI) | payer OTHER, SELFPAY ==
[2020-12-07 09:53] LABS: Alanine Aminotransferase 16 U/L (4-50); Albumin Level 4.4 g/dL (3.5-5.1); Alkaline Phosphatase 91 U/L (38-126); Anion Gap 10 mmol/L (8-16); Aspartate Amino Transferase 19 U/L (17-59); Blood Urea Nitrogen 23 mg/dL (9-20); Calcium 9.3 mg/dL (8.4-10.2); Carbon Dioxide 22 mmol/L (22-30); Chloride 102 mmol/L (98-107); Cholesterol 191 mg/dL (0-200); Estimated Glomerular Filt Rate > 60; Glucose 280 mg/dL (65-110); HDL Direct 39 mg/dL; Potassium 4.2 mmol/L (3.4-5.0); Sodium 134 mmol/L (137-145); Triglycerides 183 mg/dL (<150)
[2020-12-07 10:04] LABS: LDL Cholesterol Direct 106 mg/dL
[2020-12-07 12:26] LABS: Hemoglobin A1C 7.9 % (<5.7)
== END 2020-12-07 09:14 | disposition home or self-care (01) ==
PROVIDERS: PCP Emergency Medicine; Visit Provider Emergency Medicine
DX: E78.5 Hyperlipidemia, unspecified (principal); E11.9 Type 2 diabetes mellitus without complications
CPT/HCPCS: 36415; 80053; 80061; 83036

== ENCOUNTER 2021-05-25 09:18 | Outpatient (CLI) | payer OTHER, SELFPAY ==
[2021-05-25 09:49] LABS: Alanine Aminotransferase 17 U/L (4-50); Albumin Level 4.3 g/dL (3.5-5.1); Alkaline Phosphatase 85 U/L (38-126); Anion Gap 7 mmol/L (8-16); Aspartate Amino Transferase 24 U/L (17-59); Bilirubin,Total 0.9 mg/dL (0.2-1.3); Blood Urea Nitrogen 22 mg/dL (9-20); Calcium 9.1 mg/dL (8.4-10.2); Carbon Dioxide 25 mmol/L (22-30); Chloride 105 mmol/L (98-107); Cholesterol 209 mg/dL (0-200); Estimated Glomerular Filt Rate > 60; Glucose 234 mg/dL (65-110); HDL Direct 41 mg/dL; Potassium 4.7 mmol/L (3.4-5.0); Sodium 137 mmol/L (137-145); Triglycerides 179 mg/dL (<150)
[2021-05-25 10:00] LABS: LDL Cholesterol Direct 130 mg/dL
[2021-05-25 10:05] LABS: Creatinine Urine 101.2 mg/dL
[2021-05-25 10:14] LABS: Hemoglobin A1C 8.4 % (<5.7)
[2021-05-25 10:30] LABS: MALB Creatinine Ratio 350.5 mg/g (0-30); Microalbumin Urine Random 354.7 mg/L (0-16.7)
[2021-05-25 11:33] LABS: Prostate Specific Antigen 12.7 ng/mL (< OR = 4.0)
== END 2021-05-25 09:19 | disposition home or self-care (01) ==
LOC: ANHLAB 09:20
PROVIDERS: PCP Emergency Medicine; Visit Provider Emergency Medicine
DX: Z12.5 Encounter for screening for malignant neoplasm of prostate (principal); E11.51 Type 2 diabetes mellitus with diabetic peripheral angiopathy without gangrene; Z79.4 Long term (current) use of insulin; E11.9 Type 2 diabetes mellitus without complications; I10 Essential (primary) hypertension
CPT/HCPCS: 36415; 80053; 80061; 82043; 83036; 84153; G0103

== ENCOUNTER 2021-06-08 11:12 | Outpatient (CLI) | payer OTHER, SELFPAY ==
--- NOTE | ~2021-06-08 | XR_ITS ---
EXAMINATION: XR chest 2V 06/08/2021 11:30 INDICATION: Shortness of breath and chest pain PROCEDURE: 2 view chest COMPARISON: No prior studies for comparison. FINDINGS: The lungs are clear. The cardiomediastinal silhouette is within normal limits. There are no pleural effusions. There is no pneumothorax suspected. IMPRESSION: 1: NO ACUTE CARDIOPULMONARY DISEASE. Reviewed, dictated and finalized at location A. CAP BEVELER
== END 2021-06-08 11:13 | disposition home or self-care (01) ==
PROVIDERS: PCP Emergency Medicine; Visit Provider Emergency Medicine
DX: R06.02 Shortness of breath (principal)
CPT/HCPCS: 71046

== ENCOUNTER 2021-09-25 09:49 | Outpatient (CLI) | payer OTHER, SELFPAY ==
[2021-09-25 10:28] LABS: Alanine Aminotransferase 17 U/L (6-50); Albumin Level 4.3 g/dL (3.5-5.1); Alkaline Phosphatase 83 U/L (38-126); Anion Gap 5 mmol/L (8-16); Aspartate Amino Transferase 20 U/L (17-59); Bilirubin,Total 1.3 mg/dL (0.2-1.3); Blood Urea Nitrogen 25 mg/dL (9-20); Calcium 9.5 mg/dL (8.4-10.2); Carbon Dioxide 25 mmol/L (22-30); Chloride 107 mmol/L (98-107); Cholesterol 204 mg/dL (0-200); Estimated Glomerular Filt Rate > 60; Glucose 221 mg/dL (65-110); HDL Direct 38 mg/dL; Potassium 4.5 mmol/L (3.4-5.0); Sodium 137 mmol/L (137-145); Triglycerides 189 mg/dL (<150)
[2021-09-25 10:39] LABS: LDL Cholesterol Direct 112 mg/dL
[2021-09-25 12:11] LABS: Hemoglobin A1C 8.6 % (<5.7)
[2021-09-25 12:20] LABS: Creatinine Urine 203.2 mg/dL
[2021-09-25 13:46] LABS: MALB Creatinine Ratio 426.7 mg/g (0-30); Microalbumin Urine Random 867.1 mg/L (0-16.7)
== END 2021-09-25 09:50 | disposition home or self-care (01) ==
LOC: ANHLAB 09:51
PROVIDERS: PCP Emergency Medicine; Visit Provider Emergency Medicine
DX: E11.51 Type 2 diabetes mellitus with diabetic peripheral angiopathy without gangrene (principal); Z79.4 Long term (current) use of insulin; I10 Essential (primary) hypertension; Z13.220 Encounter for screening for lipoid disorders
CPT/HCPCS: 36415; 80053; 80061; 82043; 83036

== ENCOUNTER 2022-01-31 08:14 | Outpatient (CLI) | payer OTHER, SELFPAY ==
[2022-01-31 08:44] LABS: Alanine Aminotransferase 22 U/L (6-50); Albumin Level 4.2 g/dL (3.5-5.1); Alkaline Phosphatase 90 U/L (38-126); Anion Gap 11 mmol/L (8-16); Aspartate Amino Transferase 22 U/L (17-59); Bilirubin,Total 0.6 mg/dL (0.2-1.3); Blood Urea Nitrogen 20 mg/dL (9-20); Calcium 9.3 mg/dL (8.4-10.2); Carbon Dioxide 26 mmol/L (22-30); Chloride 101 mmol/L (98-107); Cholesterol 222 mg/dL (0-200); Estimated Glomerular Filt Rate > 60; Glucose 290 mg/dL (65-110); HDL Direct 36 mg/dL; Potassium 4.6 mmol/L (3.4-5.0); Sodium 138 mmol/L (137-145); Triglycerides 185 mg/dL (<150)
[2022-01-31 08:55] LABS: Hemoglobin A1C 8.1 % (<5.7); LDL Cholesterol Direct 134 mg/dL
[2022-01-31 09:34] LABS: Creatinine Urine 164.8 mg/dL
[2022-01-31 11:25] LABS: Microalbumin Urine Random 797.7 mg/L (0-16.7)
== END 2022-01-31 08:15 | disposition home or self-care (01) ==
PROVIDERS: PCP Emergency Medicine; Visit Provider Emergency Medicine
DX: I10 Essential (primary) hypertension (principal); E11.9 Type 2 diabetes mellitus without complications
CPT/HCPCS: 36415; 80053; 80061; 82043; 83036

== ENCOUNTER 2022-02-07 09:27 | Outpatient (CLI) | payer OTHER, SELFPAY ==
[2022-02-07 10:51] LABS: Prostate Specific Antigen 2.2 ng/mL (< OR = 4.0)
[2022-02-13 11:10] LABS: Testosterone Total 285 ng/dL (250-1100)
== END 2022-02-07 09:28 | disposition home or self-care (01) ==
LOC: ANHLAB 09:30
PROVIDERS: PCP Emergency Medicine; Visit Provider Urology
DX: C61 Malignant neoplasm of prostate (principal)
CPT/HCPCS: 36415; 84153; 84403

== ENCOUNTER 2022-03-08 00:57 | Inpatient (IN) | payer OTHER, SELFPAY ==
--- NOTE | ~2022-03-08 | CT_ITS ---
EXAMINATION: CT foot LT wo con DATE: 03/08/2022 06:06 INDICATION: Left foot wound. TECHNIQUE: Computed tomography (CT) of the left foot was performed without intravenous contrast. Auto mated exposure control and iterative reconstruction technique were employed. The dose-length product was 388.35 mGy-cm. COMPARISON: Left foot radiographs 03/08/2022 FINDINGS: There is an ulcer medial to base of first proximal phalanx. Bone alignment is normal. No ac [place] fracture. There is an old healed fracture deformity of base of third middle phalanx. There is mil d osteoarthritis of many of the midfoot and forefoot joints. There is moderate osteoarthritis of medi al naviculocuneiform joint. There is severe posttraumatic osteoarthritis of third proximal interphala ngeal joint. There is mild ankle joint osteoarthritis. First interphalangeal joint demonstrates joint space narrowing and erosions. There is an enthesophyte at plantar aspect of calcaneal tuberosity. IMPRESSION: 1. Joint space narrowing and erosions involving first interphalangeal joint, consistent with septic v ersus inflammatory arthropathy. 2. Polyarticular osteoarthritis. Reviewed, dictated and finalized at location A. MANAGEMENT ASSOCIATE IMPRESSION: 1. Joint space narrowing and erosions involving first interphalangeal joint, co nsistent with septic versus inflammatory arthropathy. 2. Polyarticular osteoarthritis.
--- NOTE | ~2022-03-08 | XR_ITS ---
EXAMINATION: XR foot LT min 3V DATE: 03/08/2022 02:40 INDICATION: Left great toe pain. Ulcer. TECHNIQUE: 4 views of left foot were obtained. COMPARISON: None. FINDINGS: Bone alignment is normal. No acute fracture. First interphalangeal joint demonstrates joint space narrowing and erosions, consistent with inflammatory versus septic arthritis. There is mild os teoarthritis of many of the midfoot and forefoot joints. There is severe osteoarthritis of third prox imal interphalangeal joint. There is an enthesophyte at plantar aspect of calcaneal tuberosity. IMPRESSION: 1. Inflammatory versus septic arthritis involving first interphalangeal joint. 2. Polyarticular osteoarthritis. Reviewed, dictated and finalized at location A. ER ADJUSTER
[2022-03-08 01:08] VITALS: BP 175/95; PULSE 76; RESP 18; TEMP 36.6; O2SAT 98
--- NOTE | 2022-03-08 01:53 | ED.WOUNDLAC ---
HPI - Wound/Laceration General Chief Complaint: Wound/Laceration Stated Complaint: L foot wound Time Seen by Provider: 03/08/22 01:41 History of Present Illness HPI narrative: This is a 66-year-old male with past medical history of diabetes and transmetatarsal amputation of the right foot for diabetic foot infection, who presents to the emergency department complaining of left great toe pain for the past several days. Pain is described as sharp and burning, 5/10 without radiation. This is associated with intermittent chills but no fevers, abdominal pain or vomiting. Related Data Allergies Allergy/AdvReac Type Severity Reaction Status Date / Time aspirin Allergy Unknown Unknown Verified 02/04/22 11:05 codeine Allergy Swelling Verified 02/04/22 11:05 of Lip/Tongue/Throat Penicillins Allergy Swelling Verified 02/04/22 11:05 of Lip/Tongue/Throat Review of Systems Review of Systems: CONSTITUTIONAL: Chills denies fever, or sweats. EYES: Denies visual changes, redness, or discharge. ENT: Denies rhinorrhea, congestion, sore throat, or otalgia. CARDIOVASCULAR: Denies chest pain, palpitations, or edema. RESPIRATORY: Denies cough or dyspnea. GASTROINTESTINAL: Denies abdominal pain, nausea, vomiting, or diarrhea. GENITOURINARY: Denies dysuria or hematuria. SKIN: Left foot wound denies rash or itching. MUSCULOSKELETAL: Denies back pain, joint pain, or myalgia. NEUROLOGIC: Paresthesias of the left foot denies headache, numbness, dizziness, or weakness. PSYCHIATRIC: Denies anxiety or depression. [facility] Past Medical History Medical History Gastroesophageal reflux disease History of osteomyelitis Treated with IV antibiotics and ultimate right transmetatarsal amputation. Hypertension Insulin dependent type 2 diabetes mellitus (2014) Hemoglobin A1c was greater than 14% on 08/03/2020. Normocytic anemia Surgical History Surgical History Amputation of right great toe (07/2020) History of transmetatarsal amputation of right foot (09/17/20) Per Dr. Chao at [facility]. Family History Family History Father Malignant neoplasm of prostate Brain cancer Suicide Mother , 85 Lung cancer Social History Social History Social History: The patient lives in [place] with his disabled brother. 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 The patient smoked remotely and quit in 1977. No current alcohol or illicit substance abuse. Smoking status: Smoker, status unknown Alcohol use details: Patient drinks alcohol very rarely Sexual Orientation (if Verbalized by the Patient): . Exam Narrative: GENERAL: Well-developed, well-nourished, and in no acute distress. HEAD: Normocephalic, atraumatic. EYES: PERRLA and EOMI. ENT: Nares clear, no rhinorrhea or epistaxis. Mucous membranes moist. Oropharynx without tonsillar hypertrophy exudate or other lesions. NECK: Supple. No adenopathy or masses. No carotid bruits or JVD CHEST: Clear to auscultation. No respiratory distress. No wheezes rales or rhonchi HEART: Regular rate and rhythm. No murmur heard. Normal peripheral pulses. ABDOMEN: Soft, nontender, nondistended, normal active bowel sounds. EXTREMITIES: Wound noted to the plantar aspect of the left foot at the base of the first metatarsal without crepitus or surrounding erythema; wound noted to the posterior aspect of the left foot overlying the distal Achilles; normal range of motion. No edema. SKIN: Wounds as above NEURO: No focal deficits. Alert and oriented x3. PSYCH: Normal mood and affect. Course Course Emergency Course: 04:54 - ESR elevated to 45 though white blood cell count is 9.6. X-ray by my read is not concerning for soft tissue gas. Discussed patient with hospitalist,
[2022-03-08 02:12] LABS: Basophils Percent Auto 0.3 % (0.2-1.2); Eosinophils Absolute Auto 0.2 K/mm3 (0-0.3); Hematocrit 34.3 % (42.0-52.0); Hemoglobin 11.4 g/dL (14.0-18.0); Immature Granulocyte Absolute 0.05 K/mm3 (0.00-0.031); Immature Granulocyte Percent A 0.5 % (0-0.5); Lymphocytes Absolute Auto 2.27 K/mm3 (0.9-3.2); Lymphocytes Percent Auto 23.5 % (18.3-44.2); Mean Corpuscular HGB Conc 33.2 g/dl (32-36); Mean Corpuscular Hemoglobin 26.9 pg (26-34); Mean Corpuscular Volume 80.9 fl (80-100); Mean Platelet Volume 10.4 fl (7.4-10.4); Monocytes Absolute Auto 0.8 K/mm3 (0.1-0.6); Monocytes Percent Auto 8.2 % (2.6-8.5); Neutrophils Absolute Auto 6.3 K/mm3 (1.3-6.7); Neutrophils Percent Auto 65.5 % (45.5-73.1); Platelet Count Result 191 k/mm3 (150-375); Red Blood Count 4.24 M/mm3 (4.6-6.20); Red Cell Distribution Width 12.8 % (11.5-14.5); White Blood Count 9.6 K/mm3 (4.5-10.0)
[2022-03-08 02:25] LABS: Alanine Aminotransferase 20 U/L (6-50); Albumin Level 4.1 g/dL (3.5-5.1); Alkaline Phosphatase 85 U/L (38-126); Anion Gap 10 mmol/L (8-16); Aspartate Amino Transferase 20 U/L (17-59); Bilirubin,Total 0.5 mg/dL (0.2-1.3); Blood Urea Nitrogen 19 mg/dL (9-20); CRP < 0.5 mg/dL (<1.0); Calcium 8.8 mg/dL (8.4-10.2); Carbon Dioxide 22 mmol/L (22-30); Chloride 106 mmol/L (98-107); Estimated CRCL calculation 79 ml/min; Estimated Glomerular Filt Rate > 60; Glucose 201 mg/dL (65-110); Potassium 4.1 mmol/L (3.4-5.0); Sodium 138 mmol/L (137-145)
[2022-03-08 03:40] LABS: Erythrocyte Sedimentation Rate 45 mm/hr (0-20)
[2022-03-08 03:41] VITALS: BP 156/68; PULSE 63; RESP 16; O2SAT 100
--- NOTE | 2022-03-08 03:41 | PC.NURSE ---
Assumed care of pt at this time/.
--- NOTE | 2022-03-08 04:49 | PM.IMHP ---
H&P: HPI History of Present Illness Date/Time: 03/08/22 04:49 Chief Complaint: left toe ulcer Narrative: This is a 66-year-old male with past medical history significant for insulin-dependent diabetes mellitus, right diabetic foot, status post transmetatarsal amputation, recently diagnosed prostate cancer. Patient presents to the emergency room due to worsening left toe ulcer with discharge and pain going across on the dorsum of the foot, has had some episodes of chills, poor appetite, no cough, sputum production, no nausea, no vomiting, has had diarrhea for 2 weeks, no shortness of breath. preliminary workup was significant for hemoglobin of 11, MCV 80. Patient is been admitted for further evaluation management and treatment. Review of Systems Review of Systems: Left foot worsening toe ulcer with discharge, and pain, poor appetite, diarrhea, chills. Constitutional: Constitutional: Reports chills, Reports malaise and Reports poor appetite Eyes: Eyes: Denies change in vision ENT: Denies dysphagia, Denies vertigo, Denies dizziness and Denies odynophagia Cardiovascular: Cardiovascular: Denies chest pain, Denies irregular heart rhythm, Denies leg edema, Denies lightheadedness and Denies palpitations Respiratory: Respiratory: Denies chest congestion, Denies cough, Denies excessive phlegm production, Denies pain on inspiration and Denies dyspnea on exertion Gastrointestinal: Gastrointestinal: Denies abdominal pain, Denies dyspepsia, Denies heartburn, Reports diarrhea, Denies nausea and Denies vomiting Genitourinary: Genitourinary: Denies dysuria Musculoskeletal: Musculoskeletal: Reports no additional musculoskeletal complaints and Reports as per HPI Integumentary/Breasts: Skin/Breast: Reports system reviewed and no additional complaints, except as docu and Reports skin ulcer ( Left toe at the base) Psychiatric: Psychiatric: Reports no additional psychiatric complaints and Reports as per HPI Endocrine: Endocrine: Denies cold intolerance, Denies flushing, Denies heat intolerance, Denies polyphagia, Denies polydipsia and Denies palpitations Hematologic/Lymphatic: Hematologic/Lymphatic: Reports no additional hematologic/lymphatic complaints and Reports as per HPI Allergic/Immunologic: Allergic/Immunologic: Reports no additional allergic/immunologic complaints and Reports as per HPI PMFSH Past Medical History Medical History Gastroesophageal reflux disease History of osteomyelitis Treated with IV antibiotics and ultimate right transmetatarsal amputation. Hypertension Insulin dependent type 2 diabetes mellitus (2015) Hemoglobin A1c was greater than 14% on 08/03/2020. Normocytic anemia Surgical History Surgical History Amputation of right great toe (07/2020) History of transmetatarsal amputation of right foot (09/17/20) Per Dr. Chao at [facility]. Family History Family History Father Malignant neoplasm of prostate Brain cancer Suicide Mother , 85 Lung cancer Social History Social History Social History: The patient lives in [place] with his disabled brother. 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 The patient smoked remotely and quit in 1977. No current alcohol or illicit substance abuse. Smoking status: Smoker, status unknown Alcohol use details: Patient drinks alcohol very rarely Sexual Orientation (if Verbalized by the Patient): . Meds Home Medications and Allergies Home Medications Medication Instructions Recorded Confirmed Type metformin 500 mg tablet 500 mg PO BIDWM #180 tabs 06/15/21 Rx pen needle, diabetic 31 gauge x #400 ea 06/16/21 Rx 5/16 ([facility]) blood sugar diagnostic (OneTouch #300 ea 12/07/21 Rx Verio test strips) insulin g
[2022-03-08 04:50] VITALS: BP 150/71; PULSE 65; RESP 14; O2SAT 99
[2022-03-08] MEDS: metroNIDAZOLE 500 MG/ISO 100ML 500 MG/100 ML BAG 100 MG IVPB (05:15)
[2022-03-08 05:55] LABS: Lactic Acid Reflex 1.1 mmol/L (0.7-2.0)
[2022-03-08 06:00] LABS: Influenza A QL RT-PCR Negative (Negative); Influenza B QL RT-PCR Negative (Negative); SARS-CoV-2 RNA PCR Negative
--- NOTE | 2022-03-08 06:05 | PC.NURSE ---
Patient arrived on 3 Med-Surg at 05:59 on 03/08/2022
[2022-03-08 06:18] VITALS: BMI 30.9
[2022-03-08 06:44] VITALS: BP 164/89; PULSE 63; RESP 12; TEMP 36.6; O2SAT 99
[2022-03-08 08:18] LABS: Glucose Point of Care 181 mg/dl (65-105)
[2022-03-08] MEDS: NEOMYCIN/POLYMYXIN/BACITRACIN OINTMENT 15 GM TUBE 1 APPLIC TOPICAL (09:12)
[2022-03-08 11:39] LABS: Glucose Point of Care 267 mg/dl (65-105)
[2022-03-08] MEDS: INSULIN ASPART (*BKC) 100 UNITS/ML 7 UNITS SUB-Q ×2 (12:57→18:12)
[2022-03-08 14:00] VITALS: BP 150/72; PULSE 70; RESP 20; TEMP 36.6; O2SAT 95
[2022-03-08 16:56] LABS: Glucose Point of Care 209 mg/dl (65-105)
[2022-03-08] MEDS: INSULIN GLARGINE (*BKC) 100 UNITS/ML 22 UNITS SUB-Q (20:46)
[2022-03-08 20:54] LABS: Glucose Point of Care 227 mg/dl (65-105)
[2022-03-08 22:00] VITALS: BP 145/80; PULSE 72; RESP 16; TEMP 37.1; O2SAT 97
[2022-03-09 06:00] VITALS: BP 158/76; PULSE 63; RESP 16; TEMP 36.6; O2SAT 100
[2022-03-09 08:20] LABS: Glucose Point of Care 196 mg/dl (65-105)
[2022-03-09] MEDS: INSULIN ASPART (*BKC) 100 UNITS/ML 7 UNITS SUB-Q ×2 (09:09→12:26)
[2022-03-09] MEDS: NEOMYCIN/POLYMYXIN/BACITRACIN OINTMENT 15 GM TUBE 1 APPLIC TOPICAL (09:10)
[2022-03-09 11:49] LABS: Glucose Point of Care 195 mg/dl (65-105)
--- NOTE | 2022-03-09 12:26 | PM.DS ---
DS: Admitting Diagnosis Discharge Date March 09, 2022 Admitting Diagnosis foot ulcer DS: Discharge Diagnosis Discharge Diagnosis (1) Ulcer of toe of left foot: Code(s): L97.529 - Non-pressure chronic ulcer of other part of left foot with unspecified severity Status: Acute Assessment and Plan: admit to regular medical floor started on broad-spectrum antibiotics CT of the left foot in a.m. on broad-spectrum antibiotics wound care consult (2) Acute pain of left foot: Code(s): M79.672 - Pain in left foot Status: Acute Assessment and Plan: pain management pending CT of the foot x-ray reviewed (3) Prostate cancer: Code(s): C61 - Malignant neoplasm of prostate Status: Acute Assessment and Plan: patient getting hormonal treatment (4) Status post transmetatarsal amputation of right foot: Code(s): Z89.431 - Acquired absence of right foot Status: Acute Assessment and Plan: fall precautions (5) Gastroesophageal reflux disease: Code(s): K21.9 - Gastro-esophageal reflux disease without esophagitis Status: Acute Assessment and Plan: PPI as needed (6) Insulin dependent type 2 diabetes mellitus: Onset Date: 2014 Code(s): E11.9 - Type 2 diabetes mellitus without complications; Z79.4 - [facility] (current) use of insulin Status: Acute Assessment and Plan: continue home meds Accu-Cheks AC and HS insulin sliding scale as needed (7) Hypertension: Code(s): I10 - Essential (primary) hypertension Status: Acute Assessment and Plan: continue home meds continue to monitor DS: Summary Hospital Course Hospital Course: 66-year-old male came in with foot ulcer. Negative for osteomyelitis. Wound Care evaluated the patient recommended aggressive wound care but no significant infection was noted. He will be discharged on suppressive antibiotic therapy for 7 days but he needs to follow up with his vascular surgeon and the surgeon over at [facility]. Patient says he will get appointment once he leaves the hospital for that Time Spent with Patient Time attestation: Total time spent providing and/or coordinating discharge services: Exam Narrative: patient is sitting at the edge of the stretcher Const: General: comfortable, no acute distress, well developed, alert, awake and average body habitus Nutritional Appearance: average body habitus Orientation/consciousness: patient oriented x3 HENMT: Head: normal to inspection, normocephalic and atraumatic Ears: hearing grossly normal bilaterally Face/Nose/Sinus: normal facial exam Face and sinus: normal facial exam Eyes: General: appearance normal, both eyes and all related structures Pupils: Equal, round and reactive pupils present EOM: EOMs intact bilaterally Neck: Neck: full ROM, no lymphadenopathy and no JVD Thyroid: thyroid normal Lymphatic: no lymphadenopathy noted Resp: Effort & Inspection: normal respiratory effort and able to speak in complete sentences Auscultation: clear to auscultation bilaterally Cardio: Jugular venous distension: no JVD Rate: regular rate Rhythm: regular rhythm Heart sounds: S1 normal heart sound present and S2 normal heart sound present : General: Yes deferred Skin: General skin exam: amputation site ( right transmetatarsal) and wounds noted ( left great toe based) Rashes: no rashes Wounds: amputation site ( right transmetatarsal) and wounds noted ( left great toe based) Neuro: General: patient oriented x3, CN's II-XI intact bilaterally and Unable to assess gait Cranial nerves: Yes CN's II-XII intact bilaterally and Yes Equal, round and reactive pupils present Cognition (Neuro): normal cognition Speech: normal speech Gait exam (Neuro): Unable to assess gait Motor exam (neuro): 5/5 motor strength present throughout Extrem: General: full ROM, normal exam except as noted, no join
--- NOTE | 2022-03-09 13:12 | P.CDI_ITS ---
CDI Query Clarification Request diabetic ulcer <Oliver Lujan MD - Last Filed: 03/10/22 09:02> Clarified Diagnosis Clarified Diagnosis: Please clarify if there is a cause and effect relationship between left Plantar foot/ feet ulcer and patients documented history of insulin dependent type 2 Diabetes. 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 Please clarify, if known : * Stasis ulcer * Nonhealing ulcer * Diabetic Ulcer * Unknown <Rachel Ramos RN - Last Filed: 03/09/22 13:19>
--- NOTE | 2022-03-09 13:12 | WPDCDIQUERY2 ---
CDI Query Clarification Request diabetic ulcer <Oliver Lujan MD - Last Filed: 03/10/22 09:02> Clarified Diagnosis Clarified Diagnosis: Please clarify if there is a cause and effect relationship between left Plantar foot/ feet ulcer and patients documented history of insulin dependent type 2 Diabetes. learning designer documented Left Plantar foot/ feet Ulcer, Diabetic ulcer. Please clarify, if known : Stasis ulcer Nonhealing ulcer Diabetic Ulcer Unknown <Rachel Ramos RN - Last Filed: 03/09/22 13:19>
== END 2022-03-09 13:37 | disposition home or self-care (01) | DRG 639 ==
LOC: ANHED 04:55 → ANH3MEDSUR 05:41
PROVIDERS: Hospitalist; Admitting Provider Internal Medicine; Emergency Provider Preventive Medicine Aerospace Medicine; PCP Emergency Medicine; Visit Provider Chiropractor
DX: E11.621 Type 2 diabetes mellitus with foot ulcer (principal); L97.529 Non-pressure chronic ulcer of other part of left foot with unspecified severity; C61 Malignant neoplasm of prostate; M79.672 Pain in left foot; K21.9 Gastro-esophageal reflux disease without esophagitis; E11.9 Type 2 diabetes mellitus without complications; I10 Essential (primary) hypertension; Z20.822 Contact with and (suspected) exposure to COVID-19; D64.9 Anemia, unspecified; Z79.4 Long term (current) use of insulin; Z89.431 Acquired absence of right foot
CPT/HCPCS: 36415; 73630; 73700; 80053; 82948; 83605; 85025; 85652; 86140; 87636; 96375; 99285; A9270; G0378; G0379; J0131; J0692; J1815; J3370

== ENCOUNTER 2022-04-29 08:37 | Outpatient (CLI) | payer MEDICARE, MEDICAID, SELFPAY ==
--- NOTE | ~2022-04-29 | NM_ITS ---
EXAMINATION: NM mathew stress w perfusion DATE: 04/29/2022 10:54 INDICATION: Chest pain TECHNIQUE: Rest images were obtained following intravenous administration of 10.8 mCi Tc99m tetrofosm in (Myoview). The patient was infused intravenously with Lexiscan (Regadenoson). Then, 33.5 mCi Tc99m tetrofosmin (Myoview) was administered intravenously, and stress images were obtained. Data was chi nstructed into short axis and horizontal and vertical long axis SPECT images. Gated SPECT images were also obtained. COMPARISON: None. FINDINGS: There is no definite reversible or fixed perfusion abnormality to suggest ischemia or infar ction. There is normal left ventricular chamber size, wall motion and ejection fraction. Left ventr icular ejection fraction measures 68%. IMPRESSION: 1. Normal myocardial perfusion at rest and during stress. 2. Left ventricular ejection fraction measuring 68%. Reviewed, dictated and finalized at location A. PUNCHER
--- NOTE | 2022-04-29 08:45 | EST_ITS ---
Patient Info Name: Michael Fiore Age: 67 years : 1955 Gender: Male Ht: 68 in Wt: 200 lbs BSA: 2.11 m2 HR: 68 bpm BP: 162 / 91 mmHg Heart Rhythm: Sinus Rhythm Exam Date: 04/29/2022 9:38 AM Exam Location: [facility] Stress Patient Status: Outpatient Admit Date: 04/29/2022 Staff Ordering Physician: Oliver Shipley MD Attending Provider: Oliver Shipley MD Exercise Technologist: Tia Keita CT Exercise Physician: Enzo Faye DO Exam Type: CA stress mathew w NM Study Info Indications R07.9 - Chest pain, unspecified A regadenoson stress test was performed. Summary 1. 1. Negative lexiscan stress test for ischemic ST changes by ECG criteria. 2. 2. Baseline hypertension. 3. 3. Nuclear scan to follow and will be reported separately. Please correlate with it. 4. 4. Patient informed of the above results. Protocol: Lexiscan Stress ECG Details Stage: REST Duration (min): 6 min : 17 sec HR (bpm): 70 SBP (mmHg): 174 DBP (mmHg): 105 Stage: REST Duration (min): 20 min : 47 sec HR (bpm): 69 SBP (mmHg): 162 DBP (mmHg): 91 Stage: STAGE 1 Duration (min): 0 min : 59 sec HR (bpm): 92 SBP (mmHg): 180 DBP (mmHg): 93 Stage: RECOVERY Duration (min): 1 min : 0 sec HR (bpm): 83 SBP (mmHg): 180 DBP (mmHg): 93 Stage: RECOVERY Duration (min): 2 min : 0 sec HR (bpm): 83 SBP (mmHg): 180 DBP (mmHg): 93 Stage: RECOVERY Duration (min): 3 min : 0 sec HR (bpm): 83 SBP (mmHg): 180 DBP (mmHg): 93 Stage: RECOVERY Duration (min): 3 min : 29 sec HR (bpm): 78 SBP (mmHg): 174 DBP (mmHg): 91 Rest HR: 69 bpm Peak HR: 92 bpm Rest Sys BP: 162 mmHg Peak Sys BP: 180 mmHg Max Pred HR: 155 bpm % Max Pred HR: 59 % Target HR: 132 bpm Max RPP: 16,560 bpm*mmHg Termination Reason: Completed protocol Cardiac Symptoms: Lightheaded/pre-syncope Total Time: 1 min : 0 sec Rest Seth BP: 91 mmHg Peak Seth BP: 93 mmHg Total Dose: 0.4 mg Resting ECG Sinus rhythm, IRBBB, borderline T wave in high lateral leads. Stress ECG No ST changes. Arrhythmias None. Report Signatures
== END 2022-04-29 08:38 | disposition home or self-care (01) ==
PROVIDERS: PCP Emergency Medicine; Visit Provider Emergency Medicine
DX: R07.9 Chest pain, unspecified (principal)
CPT/HCPCS: 78452; 93017; A9502; J2785

== ENCOUNTER 2022-07-29 07:09 | Outpatient (CLI) | payer MEDICARE, SELFPAY ==
[2022-07-29 07:46] LABS: Alanine Aminotransferase 23 U/L (6-50); Albumin Level 4.2 g/dL (3.5-5.1); Alkaline Phosphatase 95 U/L (38-126); Anion Gap 7 mmol/L (8-16); Aspartate Amino Transferase 22 U/L (17-59); Bilirubin,Total 0.6 mg/dL (0.2-1.3); Blood Urea Nitrogen 19 mg/dL (9-20); Carbon Dioxide 27 mmol/L (22-30); Chloride 104 mmol/L (98-107); Cholesterol 196 mg/dL (0-200); Estimated Glomerular Filt Rate > 60; Glucose 156 mg/dL (65-110); HDL Direct 31 mg/dL; Potassium 4.6 mmol/L (3.4-5.0); Sodium 138 mmol/L (137-145); Triglycerides 290 mg/dL (<150)
[2022-07-29 07:57] LABS: LDL Cholesterol Direct 105 mg/dL
[2022-07-29 08:42] LABS: Hemoglobin A1C 7.3 % (<5.7)
[2022-07-29 09:46] LABS: Creatinine Urine 202.3 mg/dL
[2022-07-29 11:08] LABS: Microalbumin Urine Random > 1140.0 mg/L (0-16.7)
== END 2022-07-29 07:10 | disposition home or self-care (01) ==
PROVIDERS: PCP Emergency Medicine; Visit Provider Emergency Medicine
DX: R53.83 Other fatigue (principal); E10.9 Type 1 diabetes mellitus without complications
CPT/HCPCS: 36415; 80053; 80061; 82043; 83036

== ENCOUNTER 2023-01-01 08:24 | Emergency (ER) | payer MEDICARE, SELFPAY ==
--- NOTE | ~2023-01-01 | XR_ITS ---
XR knee LT 3V 01/01/2023 08:53 Indication: Left knee pain medially. Procedure: 3 views left knee Comparison: No prior studies for comparison. Findings: There is mild patellofemoral compartment osteoarthritis. There is a large joint effusion. N o acute fracture. There is anatomic alignment. Impression: 1: Large joint effusion. 2: Mild patellofemoral compartment osteoarthritis. Reviewed, dictated and finalized at location A. Impression: 1: Large joint effusion. 2: Mild patellofemoral compartment osteoarthritis.
[2023-01-01 08:34] VITALS: BP 159/68; PULSE 94; RESP 18; TEMP 36.5; O2SAT 100
--- NOTE | 2023-01-01 08:41 | ED.GENADULT ---
HPI - General Adult General Chief complaint: Extremity Injury, Lower Stated complaint: knee pain Time Seen by Provider: 01/01/23 08:27 History of Present Illness HPI narrative: 67-year-old male presented the ED for evaluation of left knee pain. Patient reports that on 12/28 he was standing on one leg and injured his left knee. Patient denies any other pain or injury. Patient states since the knee injury he has had pain with movement and ambulation. Related Data Allergies Allergy/AdvReac Type Severity Reaction Status Date / Time aspirin Allergy Unknown Unknown Verified 08/23/22 15:12 codeine Allergy Swelling Verified 08/23/22 15:12 of Lip/Tongue/Throat Penicillins Allergy Swelling Verified 08/23/22 15:12 of Lip/Tongue/Throat Review of Systems Review of Systems: All systems reviewed & are unremarkable except as noted in HPI and below PMFSH Past Medical History Medical History Gastroesophageal reflux disease History of osteomyelitis Treated with IV antibiotics and ultimate right transmetatarsal amputation. Hypertension Insulin dependent type 2 diabetes mellitus (2014) Hemoglobin A1c was greater than 14% on 08/03/2020. Normocytic anemia Surgical History Surgical History Amputation of right great toe (07/2020) History of prostate surgery May 16, [address] [place] [address] Dhruv Godoy History of transmetatarsal amputation of right foot (09/17/20) Per Dr. Chao at [facility]. Family History Family History Father Malignant neoplasm of prostate Brain cancer Suicide Mother , 85 Lung cancer Social History Social History Social History: The patient lives in [place] with his disabled brother. 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 The patient smoked remotely and quit in 1977. No current alcohol or illicit substance abuse. Smoking status: Never smoker Alcohol intake: never Alcohol use details: Patient drinks alcohol very rarely Substance use: former Substance use type: marijuana Lack of Transportation: No Lack of Food: Never True Current Housing: I Have Housing Concerned About Future Housing: No Difficulty Paying Gas/Electric Bills: No Difficulty Paying for Meds: No Currently Unemployed: No Education: High School Diploma/GED Difficulty w/ Childcare or Family Care: No Living arrangements: alone Sexual Orientation (if Verbalized by the Patient): . Spiritual care concerns: No Exam Narrative: APPEARANCE: Well appearing, no pain, no distress, well-nourished. HEAD: normocephalic, atraumatic. EYES: PERRLA/EOMI, conjunctivae clear. NOSE: Normal no drainage RESPIRATORY: Airway patent, respirations nonlabored. Clear to auscultation bilaterally, no rales, rhonchi, wheezing. CARDIOVASCULAR: Regular rate and rhythm without murmurs rubs or gallops. ABDOMINAL: Soft, nontender, nondistended, normal bowel sounds MUSCULOSKELETAL: Left knee tenderness to palpation, no erythema, no deformity, medial tenderness to palpation NEURO: Alert. Cranial nerves II through XII intact. Good gait. Good coordination SKIN: Warm, dry. Normal Color PSYCHIATRIC: Normal affect/mood. Course Course Emergency Course: 67-year-old male presented to ED for evaluation of left knee pain. X-rays negative for acute fracture or dislocation. Patient has a suspect internal derangement of the affected knee. Patient was provided a immobilizer and crutches. Patient was encouraged of close follow-up with his primary care physician and with orthopedics. All questions and concerns were addressed and patient was stable at time of discharge. Vital Signs Vital signs: Vital Signs Temperature 97.7 F 01/01/23 08:34 Pulse Rate 94 01/01/23 08:34 Respira
[2023-01-01] MEDS: HYDROcodone/acetaminophen (*CRX) 5-325 MG TABLET 1 TAB PO (09:19)
== END 2023-01-01 09:52 | disposition home or self-care (01) ==
PROVIDERS: Emergency Provider Emergency Medicine; PCP Emergency Medicine
DX: S89.92XA Unspecified injury of left lower leg, initial encounter (principal); M23.92 Unspecified internal derangement of left knee; I10 Essential (primary) hypertension; E11.9 Type 2 diabetes mellitus without complications; D64.9 Anemia, unspecified; K21.9 Gastro-esophageal reflux disease without esophagitis; Z87.891 Personal history of nicotine dependence; Z89.431 Acquired absence of right foot; M17.12 Unilateral primary osteoarthritis, left knee; Z79.4 Long term (current) use of insulin; Z79.84 Long term (current) use of oral hypoglycemic drugs; X58.XXXA Exposure to other specified factors, initial encounter
CPT/HCPCS: 73562; 99283; A9270

== ENCOUNTER 2023-03-20 08:57 | Outpatient (CLI) | payer MEDICARE, SELFPAY ==
[2023-03-20 09:41] LABS: Alanine Aminotransferase 23 U/L (6-50); Albumin Level 3.6 g/dL (3.5-5.1); Alkaline Phosphatase 160 U/L (38-126); Anion Gap 4 mmol/L (8-16); Aspartate Amino Transferase 25 U/L (17-59); Bilirubin,Total 0.7 mg/dL (0.2-1.3); Blood Urea Nitrogen 18 mg/dL (9-20); Calcium 9.1 mg/dL (8.4-10.2); Carbon Dioxide 29 mmol/L (22-30); Chloride 103 mmol/L (98-107); Cholesterol 159 mg/dL (0-200); Estimated Glomerular Filt Rate > 60; Glucose 133 mg/dL (65-110); HDL Direct 26 mg/dL; Potassium 4.2 mmol/L (3.4-5.0); Sodium 136 mmol/L (137-145); Triglycerides 107 mg/dL (<150)
[2023-03-20 09:52] LABS: LDL Cholesterol Direct 94 mg/dL
[2023-03-20 10:37] LABS: Vitamin D 25 Hydroxy < 12.8 ng/mL
[2023-03-20 18:39] LABS: Prostate Specific Antigen 0.2 ng/mL (< OR = 4.0)
== END 2023-03-20 08:58 | disposition home or self-care (01) ==
PROVIDERS: PCP Emergency Medicine; Visit Provider Emergency Medicine
DX: E55.9 Vitamin D deficiency, unspecified (principal); I10 Essential (primary) hypertension; Z12.5 Encounter for screening for malignant neoplasm of prostate
CPT/HCPCS: 36415; 80053; 80061; 82306; 84153; G0103

== ENCOUNTER 2023-09-07 09:33 | Outpatient (CLI) | payer MEDICARE, SELFPAY ==
[2023-09-07 10:14] LABS: Alanine Aminotransferase 18 U/L (6-50); Albumin Level 4.7 g/dL (3.5-5.1); Alkaline Phosphatase 120 U/L (38-126); Anion Gap 9 mmol/L (4-12); Aspartate Amino Transferase 23 U/L (17-59); Bilirubin,Total 1.1 mg/dL (0.2-1.3); Blood Urea Nitrogen 23 mg/dL (9-20); Calcium 9.4 mg/dL (8.4-10.2); Carbon Dioxide 24 mmol/L (22-30); Chloride 103 mmol/L (98-107); Cholesterol 267 mg/dL (0-200); Estimated Glomerular Filt Rate 55; Glucose 320 mg/dL (65-110); HDL Direct 37 mg/dL; Potassium 4.7 mmol/L (3.4-5.0); Sodium 136 mmol/L (137-145); Triglycerides 421 mg/dL (<150)
[2023-09-07 10:25] LABS: LDL Cholesterol Direct 138 mg/dL
[2023-09-07 10:44] LABS: Prostate Specific Antigen 0.4 ng/mL (< OR = 4.0)
[2023-09-07 12:21] LABS: Creatinine Urine 113.1 mg/dL
[2023-09-07 12:55] LABS: Vitamin D 25 Hydroxy 13.8 ng/mL
[2023-09-07 12:56] LABS: Hemoglobin A1C 9.7 % (<5.7)
[2023-09-07 14:35] LABS: MALB Creatinine Ratio > 1008.0 mg/g (0-30); Microalbumin Urine Random > 1140.0 mg/L (0-16.7)
== END 2023-09-07 09:34 | disposition home or self-care (01) ==
PROVIDERS: PCP Emergency Medicine; Visit Provider Emergency Medicine
DX: Z12.5 Encounter for screening for malignant neoplasm of prostate (principal); E78.5 Hyperlipidemia, unspecified; E55.9 Vitamin D deficiency, unspecified; E11.9 Type 2 diabetes mellitus without complications; Z79.4 Long term (current) use of insulin
CPT/HCPCS: 36415; 80053; 80061; 82043; 82306; 83036; 84153; G0103

== ENCOUNTER 2023-10-27 08:32 | Outpatient (CLI) | payer MEDICARE, SELFPAY ==
--- NOTE | ~2023-10-27 | PE_ITS ---
EXAMINATION: PET_PETPSMAST_PT DATE: 10/27/2023 11:30 INDICATION: Prostate cancer TECHNIQUE: 4.928 mCi of Locametz Ga-68([id number]) was administered i.v. Low dose computed bisi ography (CT) images were acquired from the base of the brain to the base of the brain to the proximal thighs for attenuation correction and anatomic localization. Positron emission tomography (PET) imag es were acquired in the same distribution beginning 103 minutes after injection. Images including fus ed PET/CT images were reconstructed in axial, coronal, and sagittal planes. Automated exposure contro l technique was employed. The dose-length product was 1163.14mGy-cm. COMPARISON: None FINDINGS: Head/neck: Typical pattern of symmetric physiologic increased activity in the lacrimal, parotid and submandibula r glands as well as along the mucosa of the nasal and oral cavities, pharynx and hypopharynx. No path ologically enlarged cervical lymphadenopathy or suspicious foci of increased uptake in the visualized head or neck. Chest: Mild dependent atelectasis. No suspicious pulmonary nodules, pneumonia, pulmonary edema or pleural ef fusion. Heart size is normal. No pericardial effusion. Thoracic aorta is normal in caliber. No pathol ogically enlarged or PSMA avid thoracic lymphadenopathy. Abdomen/pelvis/proximal thighs: Physiologic renal accumulation and excretion of activity in the kidneys, bladder and along portions o f ureters. Status post prostatectomy. No evident abnormal soft tissue density at the prostatectomy be d or abnormal activity side from the urinary activity in the bladder to suggest residual or locally r ecurrent disease. There are cortical photopenic defects at both kidneys which suggests the presence o f cysts which are not evident on the postcontrast imaging, potentially complex cysts although differe ntial would include solid neoplasm.. Normal degree and slightly heterogenous pattern of increased upt lelia throughout the liver and spleen without radiologic correlate or dominant PSMA avid lesion. The ga llbladder, pancreas and bilateral adrenal glands are normal. Moderate uptake scattered throughout the bowels with typical duodenal and proximal jejunal predominance and without radiologic correlate, als o likely physiologic. Normal appendix. No other abnormal foci of increased uptake or pathologically e nlarged lymphadenopathy in the abdomen, pelvis or proximal thighs. Musculoskeletal: A few small sclerotic likely bone islands without PSMA activity in the pelvis. No other suspicious ly tic, blastic or abnormally PSMA avid bone lesions to suggest metastatic disease. Massive increased up take along the dorsum of the right hand in the region of the metacarpophalangeal joints which could r epresent skin contamination or potentially inflammatory arthritis. IMPRESSION: 1. Status post prostatectomy. No evident residual, locally recurrent or metastatic disease. 2. Photopenic cortical defects at both kidneys most typically secondary to renal cysts although no co rrelate is identified on the CT images which could represent complex cysts or neoplasm. Recommend fur ther evaluation with pre and postcontrast MRI or CT. 3. Indeterminate foci of increased uptake in the right hand in the region of the metacarpophalangeal joints which could represent skin contamination along the knuckles or potentially septic arthritis. C orrelate clinically and could consider right hand radiographs as clinically indicated. Reviewed, dictated and finalized at location A. IMPRESSION: 1. Status post prostatectomy. No evident residual, locally recurrent or metasta tic disease. 2. Photopenic cortical defects at both kidneys most typically secondary to gerardo l cysts although no correlate is identified on the CT images which could repres ent com
== END 2023-10-27 08:33 | disposition home or self-care (01) ==
PROVIDERS: PCP Emergency Medicine; Visit Provider Urology
DX: C61 Malignant neoplasm of prostate (principal); Z90.79 Acquired absence of other genital organ(s)
CPT/HCPCS: 78815; A9596

== ENCOUNTER 2024-03-18 07:21 | Outpatient (CLI) | payer MEDICARE, SELFPAY ==
[2024-03-18 08:15] LABS: Alanine Aminotransferase 21 U/L (6-50); Albumin Level 4.3 g/dL (3.5-5.1); Alkaline Phosphatase 100 U/L (38-126); Anion Gap 8 mmol/L (4-12); Aspartate Amino Transferase 20 U/L (17-59); Bilirubin,Total 1.2 mg/dL (0.2-1.3); Blood Urea Nitrogen 24 mg/dL (9-20); Calcium 9.4 mg/dL (8.4-10.2); Carbon Dioxide 25 mmol/L (22-30); Chloride 99 mmol/L (98-107); Cholesterol 129 mg/dL (0-200); Estimated Glomerular Filt Rate 51; Glucose 440 mg/dL (65-110); HDL Direct 31 mg/dL; Potassium 4.4 mmol/L (3.4-5.0); Sodium 132 mmol/L (137-145); Triglycerides 331 mg/dL (<150)
[2024-03-18 08:26] LABS: LDL Cholesterol Direct 43 mg/dL
[2024-03-18 08:43] LABS: Hemoglobin A1C > 14.0 % (<5.7)
[2024-03-18 09:21] LABS: Creatinine Urine 88.7 mg/dL
[2024-03-18 11:15] LABS: MALB Creatinine Ratio 717.2 mg/g (0-30); Microalbumin Urine Random 636.2 mg/L (0-16.7)
== END 2024-03-18 07:22 | disposition home or self-care (01) ==
PROVIDERS: PCP Emergency Medicine; Visit Provider Emergency Medicine
DX: E78.5 Hyperlipidemia, unspecified (principal); E11.9 Type 2 diabetes mellitus without complications; Z79.4 Long term (current) use of insulin
CPT/HCPCS: 36415; 80053; 80061; 82043; 83036

== ENCOUNTER 2024-04-02 10:08 | Outpatient (CLI) | payer MEDICARE, SELFPAY ==
[2024-04-02 11:18] LABS: Prostate Specific Antigen 0.4 ng/mL (< OR = 4.0)
== END 2024-04-02 10:09 | disposition home or self-care (01) ==
PROVIDERS: PCP Emergency Medicine; Visit Provider Emergency Medicine
DX: Z12.5 Encounter for screening for malignant neoplasm of prostate (principal)
CPT/HCPCS: 36415; 84153; G0103